=== PATIENT | female | born 1960 | race Caucasian/White ===

== ENCOUNTER 2017-02-24 10:40 | Inpatient (IN) ==
[2017-02-24] MEDS ORDERED: NS 1,000 ML IV ONE ×2 (11:13→12:24)
--- NOTE | 2017-02-24 11:52 | Diag Imaging Result Doc PS360 ---
EXAM: HEAD W/O CONTRAST HISTORY: ams TECHNIQUE: Dose reduction protocol COMPARISON: None. FINDINGS: No parenchymal hemorrhage. No epidural or subdural hematoma. No subarachnoid hemorrhage. Mild atrophy with chronic ischemic changes or an old infarct in the left basal ganglia. No mass identified on this noncontrasted exam. No hydrocephalus. Near complete opacification of the right maxillary sinus. IMPRESSION: 1.No hemorrhage 2.Atrophy with chronic ischemic changes in the left basal ganglia 3.Right maxillary sinus opacification Electronically signed by Geovany Hoff 02/24/2017 11:50 AM
[2017-02-24 11:54] LABS: ALLEN TEST NO; BE 2.2 mmoll (-3.0-3.0); BLOOD TYPE ARTERIAL; DRAW SITE R BRACHIAL; METHB 1.6 % (0.0-1.5); O2(CT) 14.8 mL/dL (15.0-23.0); PCO2(98.6) 32 mmHg (35-45); PO2(98.6) 83 mmHg (60-100); SAMPLE BLOOD; SAO2 96.9 % (95.0-100.0); THB 11.1 g/dL (11.5-17.4)
[2017-02-24 11:55] LABS: MODALITY ROOM AIR
[2017-02-24 12:09] LABS: BASO% 0.1 % (0.0-0.8); EOS# 0.01 X1000 (0.0-0.7); EOS% 0.1 % (0.0-10.0); HEMATOCRIT 32.5 % (37.0-47.0); HEMOGLOBIN 12.1 g/dL (12.0-16.0); IMM GRAN# 0.02 X1000 (0.0-0.04); IMM GRAN% 0.2 % (0.0-0.5); LYMPH# 0.69 X1000 (1.2-3.4); LYMPH% 7.6 % (20.5-51.1); MANUAL DIFF NEEDED? NO; MCHC 37.2 g/dL (33-37); MONO% 7.8 % (1.7-9.3); MPV 9.8 FL (7.4-10.4); NEUT% 84.2 % (42.2-75.2); PLT 453 X1000 (130-400); RBC 3.78 XMIL (4.2-5.4)
--- NOTE | 2017-02-24 12:17 | Diag Imaging Result Doc PS360 ---
EXAM: CHEST-PORTABLE HISTORY: AMS TECHNIQUE: Portable AP COMPARISON: None. FINDINGS: The lungs are well expanded. The heart is not enlarged. The vessels are not distended. No pneumonia. No pleural effusions identified. IMPRESSION: Negative chest. Electronically signed by Geovany Hoff 02/24/2017 12:15 PM
[2017-02-24 12:21] LABS: INR 0.97; PROTIME 10.2 Seconds (9.2-11.7)
[2017-02-24 12:28] LABS: PTT 18.5 Seconds (22.0-36.0)
[2017-02-24 12:37] LABS: ALBUMIN 4.7 g/dL (3.5-5.0); CALCIUM 10.2 mg/dL (8.8-10.2); POTASSIUM 3.2 mmol/L (3.5-5.1); TOTAL BILIRUBIN 0.66 mg/dL (0.20-1.00); TOTAL PROTEIN 8.4 g/dL (6.3-8.3)
[2017-02-24 13:02] LABS: CK INDEX 3.2 (0.0-2.5); CK-MB 5.91 ng/mL (0.0-5.0)
[2017-02-24] MEDS ORDERED: SOLU-MEDROL IV ONE (13:10)
--- NOTE | 2017-02-24 14:00 | PROVIDER DOCUMENTATION ---
This chart was entered by Pamela Pathak Scribe, acting as scribe for Iliana Crane MD. HPI-General Adult - General Chief Complaint: Psych Stated Complaint: "SCHIZOPHRENIC" Time Seen by Provider: 02/24/17 11:06 Source: patient, family Allergies/Adverse Reactions: Patient Allergies Allergy/AdvReac Type Severity Reaction Status Date / Time No Known Allergies Allergy Verified 02/24/17 12:27 - History of Present Illness -Gen Adult Nature of Presenting Problems: PT IS A 56YOF PRESENTING TO THE ED C/O FAILURE TO THRIVE AND PSYCHIATRIC PROBLEMS. PT HAS A HISTORY OF FAILURE TO THRIVE WHEN SHE IS HAVING ISSUES AND NON-COMPLIANT WITH MEDICATIONS FOR SCHIZOPHRENIA. PTS BROTHER BROUGHT HER IN TODAY DUE TO HER POOR CONDITION. PT STATES SHE "HURTS ALL OVER AND CANT GET UP TO DO ANYTHING." PT SMELLS LIKE URINE, VERY POOR HYGIENE CONDITION, THIN, DISHEVELED, AND EXTREMELY DRY MUCOUS MEMBRANES. UPON ARRIVAL TO ED PT IS MILDLY TACHYCARDIA WITH HYPOTENSION IN THE 80'S SYSTOLIC. PT DENIES ANY CP, SOB OR OTHER COMPLAINTS AT THIS TIME. Location of Pain/Injury: reports: generalized Pain Radiation: reports: no radiation Quality of Pain: reports: aching, dull Severity: reports: mild, moderate Onset/Duration: reports: gradual Timing: reports: still present, changing over time Context/Activities at Onset: reports: light activity Modifying Factors: improves with: nothing Associated Symptoms: reports: fatigue, joint pain, loss of appetite, malaise, weakness, trouble walking, other (BRUISING ALL OVER). denies: back/neck pain, chest pain, shortness of breath Similar Symptoms Previously?: Yes Recently seen or treated by another doctor?: No Review of Systems - Adult - REVIEW OF SYSTEMS - ADULT Constitutional: reports: see HPI, fatique, weight loss. denies: chills, fever Eyes: reports: no symptoms reported Ears, Nose, Mouth & Throat: reports: see HPI, other (DRY MEMBRANES). denies: sinus problem Cardiovascular: reports: no symptoms reported Respiratory: reports: no symptoms reported Gastrointestinal: reports: no symptoms reported Genitourinary: reports: no symptoms reported Musculoskeletal: reports: no symptoms reported Integumentary: reports: no symptoms reported Neurological: reports: no symptoms reported Psychiatric: reports: see HPI, anxiety, depression, emotional problems, panic attacks, other (SCHIZOPHRENIA). denies: suicidal thoughts Endocrine: reports: no symptoms reported Hematologic/Lymphatic: reports: see HPI, easy bruising, other (NO INJURY NOTED) Allergic/Immunologic: reports: no symptoms reported All Other Systems: Reviewed and Negative Past History - Adult - PAST MEDICAL HISTORY-ADULT Review of Records: reports: Old Records Reviewed, Nursing Assessment Review, Medications Reviewed, Social history reviewed & non-contributory. Major Childhood Illnesses: reports: denies history Cardiovascular: reports: denies history Respiratory: reports: denies history Gastrointestinal: reports: denies history Obstetrical/Gynecological: reports: denies history Genitourinary: reports: denies history Musculoskeletal: reports: denies history Neurological: reports: denies history Endocrine/Immune: reports: denies history Other Conditions: reports: denies history - IMMUNIZATION STATUS Childhood Immunizations: See Nurse Assessment Flu Vaccine: See Nurse Assessment - FAMILY HISTORY Family History: reviewed, not pertinent - SOCIAL HISTORY Smoking: cigarettes, greater than 1 pack/day Provider spent 3-5 mins advising pt. on dangers of tobacco.: Discussed manners to quit use, and f/u contacts for add'l counseling. Substance Use: none/never, denies Alcohol Use Frequency: never Living Situation: family Physical Exam-General - PHYSICAL EXAM-ADULT Initial Vital Signs Reviewed: Yes - CONSTITUTIONAL General Appearance: alert, moderate distress, thin (EXTREMELY THIN AND POOR HYGIENE), anxious, slow to respond. negative: appears well - EYES Eyes: PERRL/EOMI, pink conjunctivae - HEAD, EARS, NOSE, MOUTH & THROAT HENMT: normocephalic/atraumatic, TMs normal, other (VERY DRY MUCOUS MEMBRANES). negative: moist mucous membranes, normal ENT inspection, pharynx normal - NECK Neck: non-tender, full range of motion, supple, normal inspection - RESPIRATORY Respiratory: chest non-tender, lungs clear, normal breath sounds, no pleuratic chest pain, no respiratory distress, no accessory muscle use - CARDIOVASCULAR Cardiovascular: normal peripheral pulses, regular rate, rhythm, no edema, no gallop, no JVD, no murmur, other (HYPOTENSIVE 70-80'S SYSTOLIC) - GASTROINTESTINAL (ABDOMEN) Abdominal Exam: normal bowel sounds, non tender, soft, no organomegaly, no pulsatile mass - LYMPHATIC Lymphatic: no adenopathy - MUSCULOSKELETAL Back Exam: normal inspection, no CVA tenderness, no vertebral tenderness Extremity: normal range of motion, non-tender, no pedal edema, no calf tenderness, normal capillary refill, pelvis stable. negative: normal gait, normal inspection - SKIN Integumentary: normal turgor, warm/dry, other (MULTIPLE BRUISES ALL OVER BODY). negative: normal color - NEUROLOGIC Neurologic: sterilization specialist II-XII nml as tested, grossly normal, no motor/sensory deficits - PSYCHIATRIC Psych/Mental Status: normal thought content, normal thought process, oriented x 3, disheveled, depressed affect Progress - PLAN OF CARE/RESULTS Progress/Plan/Lab Results: Vital Signs - 8 hr 02/24/17 10:59 Temperature 98.6 F Pulse Rate 89 Respiratory Rate 14 Blood Pressure 78/46 O2 Sat by Pulse Oximetry 100 Laboratory Results - last 24 hr 02/24/17 11:50 Specimen Type ARTERIAL Sample Site R BRACHIAL pH 7.50 H pCO2 32 L pO2 83 HCO3 26.6 H Base Excess 2.2 Oxyhemoglobin 94.5 L ABG O2 Sat (Calculated) 14.8 L ABG O2 Saturation 96.9 ABG Carboxyhemoglobin 0.90 ABG Methemoglobin 1.6 H Arnold Test NO A-a O2 Difference 27.0 Total Hemoglobin 11.1 L Lactate 0.90 Blood Gas Modality ROOM AIR FiO2 % 21.0 Orders Category Date Time Status Finger Stick Blood Sugar (ED) DIRECTED Care 02/24/17 11:13 Active Saline Loc NOW Care 02/24/17 11:13 Active CHEST-PORTABLE [RAD] Stat Exams 02/24/17 11:13 Taken HEAD W/O CONTRAST [CT] Stat Exams 02/24/17 11:15 Completed ABG [RESP] Routine Lab 02/24/17 11:50 Completed ALCOHOL BLOOD Stat Lab 02/24/17 11:50 Received CBC WITH ELECTRONIC DIFF [HEME] Stat Lab 02/24/17 11:50 Results CK PROFILE [SP CHEM] Stat Lab 02/24/17 11:50 Received COMPREHENSIVE METABOLIC PANEL [CHEM] Stat Lab 02/24/17 11:50 Received LACTATE, PLASMA [CHEM] Stat Lab 02/24/17 11:50 Received PROTIME WITH INR [COAG] Stat Lab 02/24/17 11:50 Received PTT [COAG] Stat Lab 02/24/17 11:50 Received TROPONIN T Stat Lab 02/24/17 11:50 Received URINALYSIS W/POSS RFLX CULT-1 [URINALYSIS] Stat Lab 02/24/17 11:13 Uncollected URINE DRUG SCREEN Stat Lab 02/24/17 11:13 Uncollected 0.9% Sodium Chloride Inj [Ns] 1,000 ml Med 02/24/17 11:13 Active IV 999 mls/hr EKG [EKG] Stat Ther 02/24/17 11:13 Ordered Laboratory Tests 02/24/17 02/24/17 02/24/17 11:50 11:50 11:50 WBC RBC Hgb Hct MCV MCH MCHC RDW Std Deviation Plt Count MPV Immature Gran % (Auto) Neut % (Auto) Lymph % (Auto) Cross % (Auto) Eos % (Auto) Baso % (Auto) Immature Gran # (Auto) Neut # (Auto) Lymph # (Auto) Cross # (Auto) Eos # (Auto) Baso # (Auto) PT INR Specimen Type ARTERIAL Sample Site R BRACHIAL pH 7.50 H pCO2 32 L pO2 83 HCO3 26.6 H Base Excess 2.2 Oxyhemoglobin 94.5 L ABG O2 Sat (Calculated) 14.8 L ABG O2 Saturation 96.9 ABG Carboxyhemoglobin 0.90 ABG Methemoglobin 1.6 H Arnold Test NO A-a O2 Difference 27.0 Total Hemoglobin 11.1 L Lactate 0.90 Blood Gas Modality ROOM AIR FiO2 % 21.0 Estimated GFR/1.73 m2 8 Plasma Lactate 1.1 Plasma/Serum Ethyl Alc 02/24/17 02/24/17 02/24/17 11:50 11:50 11:50 WBC 9.03 RBC 3.78 L Hgb 12.1 Hct 32.5 L MCV 86.0 MCH 32.0 H MCHC 37.2 H RDW Std Deviation 12.5 Plt Count 453 H MPV 9.8 Immature Gran % (Auto) 0.2 Neut % (Auto) 84.2 H Lymph % (Auto) 7.6 L Cross % (Auto) 7.8 Eos % (Auto) 0.1 Baso % (Auto) 0.1 Immature Gran # (Auto) 0.02 Neut # (Auto) 7.60 H Lymph # (Auto) 0.69 L Cross # (Auto) 0.70 H Eos # (Auto) 0.01 Baso # (Auto) 0.01 PT 10.2 INR 0.97 Specimen Type Sample Site pH pCO2 pO2 HCO3 Base Excess Oxyhemoglobin ABG O2 Sat (Calculated) ABG O2 Saturation ABG Carboxyhemoglobin ABG Methemoglobin Arnold Test A-a O2 Difference Total Hemoglobin Lactate Blood Gas Modality FiO2 % Estimated GFR/1.73 m2 Plasma Lactate Plasma/Serum Ethyl Alc Result Diagrams: 02/24/17 11:50 02/24/17 11:50 - CONSULTS/PCP/HOSPITALIST Notification #1 *Consult/PCP/Hospitalist*: DR LUEVANO Time Discussed: 13:12 (CONSULT FOR ADMISSION) Consult Disposition: Admit #2 Consult: DR ROSSI Time Discussed: 13:14 Reason/Comments: ACCEPTED PT TO SERVICE POSSIBLE ICU ADMISSION Consult Disposition: Admit Departure - Departure Date of Disposition Decision: 02/24/17 Time of Disposition Decision: 13:24 DIAGNOSIS: Altered mental status, unspecified, Hypotension, Hyponatremia, Renal insufficiency, Dehydration Disposition: ADMITTED INPATIENT 09 Certified Medical Emergency: Emergent Condition: Stable Referrals and Follow-Ups: None,PCP [Primary Care Provider] - - Critical Care Note This patient required my direct & personal management of CC.: Yes Total Time (mins): 60 (DR CRANE) Critical Care Statement: This patient required my direct personal management to treat or rule out processes, the absence of which, could potentiallly result in sudden, clinically significant life or limb threatening deterioration. This chart was documented by the indicated scribe, (Pamela Pathak Scribe) and accurately reflects the services I performed and decisions made by me, Iliana Crane MD, as attested by the provider's signature.
[2017-02-24 14:56] LABS: URINE MICRO REVIEW NEEDED? NO; URINE SOURCE CATH
[2017-02-24 15:03] LABS: BILIRUBIN URINE NEGATIVE (NEGATIVE); BLOOD URINE MODERATE (NEGATIVE); COLOR YELLOW; GLUCOSE URINE NEGATIVE (NEGATIVE); LEUKOCYTES URINE LARGE (NEGATIVE); NITRITE URINE NEGATIVE (NEGATIVE); PH URINE 5.5; PROTEIN URINE 100 mg/dL (NEGATIVE); SP GRAVITY URINE 1.015; TURBIDITY URINE HAZY (CLEAR); UROBILINOGEN URINE NORMAL (NORMAL)
[2017-02-24 15:04] LABS: UR EPITHELIAL CELLS <10 /HPF (<10); URINE BACTERIA 1+ /HPF; URINE CULTURE NEEDED? YES; URINE RBC <10 /HPF (<10); URINE WBC TNTC /HPF (<10)
--- NOTE | 2017-02-24 15:08 | HISTORY AND PHYSICAL ---
HISTORY OF PRESENT ILLNESS: This is a 56-year-old who has a past medical history apparently of schizophrenia, depression, hypothyroidism, hypertension, gastroesophageal reflux disease, and anemia. She has a child. She apparently does not have a private care physician. She does go to the [facility] and I believe she is seen by a counselor or psychiatrist there, but she has not been there in a while. Dad and brother here state that she has really gone down the last 2 weeks, cannot get up, cannot walk. Her stomach is burning. Dennison to urinate. She claims she has not had a bowel movement in several days. She does answer questions but her affect is slow, appears to have a hard time concentrating. She is moving all extremities. Family did not notice any new focal neurologic deficits. SOCIAL HISTORY: She smoked a pack per day since age 15. She had been in 3-5 alcohol rehab treatment programs in the past. She drinks beer all day. She has no ride to get her alcohol at the present time so they suspect she has not had any. She has a 14-year-old daughter who lives with her grandfather. FAMILY HISTORY: Noncontributory. REVIEW OF SYSTEMS: General Appearance: They feel like she has lost weight. They have not noticed any fever or chills. HEENT: No change. I do not know that they notice any change in her color. She claims she has not had a bowel movement several days. No trouble with voiding although she sometimes dennison when she urinates. Respiratory: No increased work of breathing. Cardiovascular: No chest pain. PHYSICAL EXAMINATION: VITAL SIGNS: Today in the emergency room, temperature 98.6 degrees, pulse 77, respiration is 18, blood pressure 99/47. Weight 115 pounds. HEENT: Pupils are equal and round. LUNGS: Clear in all lung wall. CARDIOVASCULAR: Regular rhythm and rate without murmur or S3. ABDOMEN: Soft, nontender. SKIN: Warm and dry. DIAGNOSTIC DATA: White count 9030, hematocrit 32, platelet count 453,000. Sodium 121, potassium 3.2, chloride 73, bicarb 23, BUN 101, creatinine 5.7, blood sugar 116. AST 26, ALT 21, alkaline phos 101, troponin 0.089, albumin 4.7. ProTime 10.2. PTT is 18.5. Urine or plasma alcohol zero. Blood gases; pH is 7.50, pCO2 32, PO2 is 83, O2 saturation is 96%. Chest x-ray: Negative chest. Head CT: No hemorrhages. Atrophy with chronic ischemic changes in the left basal ganglia. Right maxillary sinus with some opacification. LIST OF MEDICATIONS: I am not sure we know what all medicines she was on. Apparently they do not have. The family did state there was a whole pile of medicines, there are quite a few medicines at her home. ASSESSMENT AND PLAN: 1. History of alcohol. I am not sure how long she has been without alcohol, so I suspect at minimum she is going through alcohol withdrawal and maybe has even gone through delirium tremens, and maybe going through it at the present time. 2. Hyponatremia. Appears to be volume contracted, so I suspect this is hypovolemic hyponatremia. Note her osmolality is 277, so hyperosmolar as well. So we will give her some normal saline, we will run it at 100 mL an hour and follow her sodium. Also follow her magnesium. Will check her thyroid T4 and TSH. We will check a cortisone level in the morning. I will go ahead and give her stress doses for potential adrenal insufficiency even though I do not know that this has been documented. 3. Hypokalemia. We will supplement her potassium. 4. Questionable constipation. We will give her a regular diet and we will start her on some Colace and see how we do. Probably need to check an ammonia level. 5. Acute kidney injury. Serum creatinine is 5.7. Hopefully the majority of this is prerenal, so normal saline, will follow. Will ask Dr. Terry to follow along. 6. History of schizophrenia and depression. 7. Has a history of hypothyroidism, question on whether she is taking any of her medicines like she is supposed to, so once again we will check T4 and TSH to see where we are, check a B12 and folate. Note that her ABGs look like they are just a respiratory alkalosis probably just from getting the blood gases. cc: Arnold Aldrich MD
[2017-02-24 15:24] LABS: UR AMPHETAMINES QUAL NONE DETECTED (NONE DETECT); UR BARBITUATES QUAL NONE DETECTED (NONE DETECT); UR BENZODIAZEPIN QUAL NONE DETECTED (NONE DETECT); UR CANNABINOIDS QUAL NONE DETECTED (NONE DETECT); UR COCAINE QUAL NONE DETECTED (NONE DETECT); UR METHADONE QUAL NONE DETECTED (NONE DETECT); UR OPIATES QUAL NONE DETECTED (NONE DETECT); UR OXYCODONE QUAL NONE DETECTED (NONE DETECT); UR PCP QUAL NONE DETECTED (NONE DETECT)
[2017-02-24 15:25] LABS: UR CREAT RANDOM 234.4 mg/dL (11-20)
[2017-02-24] MEDS: SOLU-CORTEF IV SCH (18:03)
[2017-02-24] MEDS: NS + KCL 40 MEQ 1,000 ML IV SCH (18:04)
[2017-02-24 20:39] LABS: UR CREAT RANDOM 109.6 mg/dL (11-20); UR PROT RANDOM 144.2 mg/dL
--- NOTE | 2017-02-24 21:33 | CONSULTATION ---
DATE OF CONSULTATION: 02/24/2017 REASON FOR ADMISSION: Altered mental status. Weakness. REASON FOR CONSULT: Acute kidney injury associated with hyponatremia. CONSULTING PHYSICIAN: Dr. Aldrich. HPI: Ms. Smith is a 56-year-old white female who has not been seen by our service in the past. She was admitted to [facility] after her family stated that she has not moved off of her couch for more than 2 weeks. They said that she was lying in urine. She has scalding present to abdomen and buttocks. She has a slow affect upon questioning. She has a hard time concentrating. She does deny chest pain. She states that she has just not felt well in the last several weeks and has just gone downhill was unable to get up and seek help. Subsequently her father and her brother have brought her to [facility]. It was found upon admission in the emergency room that her sodium was 121, she had a white count of 9000, potassium of 3.2, BUN of 101 with a creatinine of 5.7. Her drug screen was negative. It is noted that patient does admit to drinking heavily though she has quit in the last 2-3 weeks. She states that she has not been eating much, decreased appetite. Negative for nausea and vomiting. Negative for diarrhea. Negative for fever and chills. No chest pain or increased work of breathing. She does answer questions though she is slow to respond. SOCIAL HISTORY: The patient states that she is single. She lives alone. She has a daughter who lives with her grandfather. She has been in alcohol rehab treatments in the past. She states that she used to drink greater than a 6 pack per day but is down to maybe 1 or 2 a day prior to the last 2 weeks onset. She states that she has been smoking since the age of 15, she has previously smoked a pack per day. She states that she has not been smoking but maybe 1 a day up until a week ago when she felt too weak to light her cigarettes. She also states that she has never done illicit drug use or street drugs. PAST MEDICAL HISTORY: Noted in the chart and patient does admit that she has a history of schizophrenia, depression, hypothyroidism, hypertension, gastroesophageal reflux , anemia. FAMILY HISTORY: Noncontributory. CURRENT ALLERGIES: Listed as no known drug allergies. MEDICATIONS: Family has gone home to attempt to gather her personal medications together. We have no history. REVIEW OF SYSTEMS: Times 10 with pertinent positives listed above in the HPI. VITAL SIGNS: Her most recent vital signs, temperature 98.1 degrees, blood pressure 100/60, heart rate 80, respirations 16, she is on room air. Last recorded saturation is 89-91 %. LABS: Sodium 121, potassium 3.2, chloride 73, CO2 23, BUN 101, creatinine 5.7, glucose 116. Her anion gap is 25, her calcium is 10.2, her albumin is 4.7. White count 9.03, hemoglobin 12.1, hematocrit 32.5 with a platelet count of 453,000. Her pro time is 10.2 with an INR of 0.7 with a PTT of 18.5. Patient had urine electrolytes collected indicating a FENa score of 0.3%. She is prerenal. Urinalysis is positive for proteinuria and hematuria. Patient had an anemia panel that is still currently pending. She has received 2 L of normal saline bolus in the emergency room. She is currently admitted on the floor. She is receiving normal saline with 40 of KCl infusing at 100 mL an hour to her right forearm. Patient was given a dose of Solu-Medrol. She denies any problems at this time. She has had a head CT which is negative for any acute disease with right maxillary sinusitis and atrophy noted to the left basal ganglia. Chest x-ray was negative. PHYSICAL EXAMINATION: General: This is a 56-year-old white female. She appears chronically ill. She is in no acute distress. Skin: Warm and dry. HEENT: Normocephalic, atraumatic. Conjunctiva is pale. She has JONATHAN. Mucous membranes are dry. Neck: Supple. Trachea midline. No JVD. Cardiovascular: She has regular rate and rhythm. She is without murmur or gallop. Lungs: Clear to auscultation anteriorly. Equal excursion. She remains on room air. Abdomen: Soft, round, nontender. Positive bowel sounds. No guarding noted. Genitourinary: De Oliveira catheter is in place. She is starting to flower picker urine to her urometer at this time. Clear yellow urine is noted. Extremities: She has no edema, no clubbing or cyanosis. Integumentary: The patient has different stages of ecchymosis and bruising over her lower and upper extremities and some to her backside. ASSESSMENT AND PLAN: 1. Acute kidney injury. Patient's creatinine baseline is unknown. We have no previous creatinine noted in the hospital system. She is currently at 5.7 with a BUN of 101. She has received 2 L of normal saline bolus. She continues to receive normal saline with 40 mEq of KCl at 100 mL an hour. Her urine electrolytes indicate that she has a low FENa score. Definitely prerenal. Agree with continued IV fluids. We will check these labs in the a.m. 2. Electrolytes. Patient is hyponatremic. She continues to have normal saline with 40 mEq of KCl infusing with hypokalemia. Again labs to be repeated in the a.m. 3. Acidosis. Patient has an elevated anion gap acidosis. She had a negative plasma ethylene glycol level, negative drug screen. 4. Anemia. This is currently within target range. 5. Encephalopathy. This is currently improved. With her delirium since her hospitalization and IV fluid boluses she is to have a T4 and TSH checked. 6. History of schizophrenia and depression. We do not know patient's home medications. Hopefully we will get this in the a.m. 7. Hypothyroidism. Patient is unsure if she has been taking her medications. Again we will have these labs checked. These are currently pending. These are being followed by the primary care team. I would like to thank you for allowing us to follow with this patient. Dictated by PASCUAL Cisneros for Regino Terry MD cc: PASCUAL Cisneros MD [facility]
[2017-02-24] MEDS: PERICOLACE PO SCH (21:47)
[2017-02-24] MEDS: HEPARIN SUBQ SCH (21:48)
[2017-02-24] MEDS: PRILOSEC PO SCH (21:48)
[2017-02-25] MEDS: SOLU-CORTEF IV SCH ×3 (00:14→16:16)
[2017-02-25] MEDS: NS + KCL 40 MEQ 1,000 ML IV SCH ×2 (03:33→15:48)
[2017-02-25 05:19] LABS: INR 1.02; PROTIME 10.7 Seconds (9.2-11.7)
[2017-02-25 05:20] LABS: HEMOGLOBIN A1C 5.3 % (4.8-6.0); PTT 28.4 Seconds (22.0-36.0)
[2017-02-25 06:04] LABS: ALBUMIN 3.5 g/dL (3.5-5.0); CALCIUM 8.9 mg/dL (8.8-10.2); MAGNESIUM 2.1 mg/dL (1.5-2.7); POTASSIUM 3.6 mmol/L (3.5-5.1); TOTAL BILIRUBIN 0.41 mg/dL (0.20-1.00)
[2017-02-25 06:52] LABS: FREE T4 0.35 ng/dL (0.93-1.70)
[2017-02-25 06:57] LABS: HEMATOCRIT 23.9 % (37.0-47.0); HEMOGLOBIN 8.5 g/dL (12.0-16.0); LYMPH# 0.32 X1000 (1.2-3.4); LYMPH% 4.8 % (20.5-51.1); MANUAL DIFF NEEDED? YES; MCH 31.5 PG (27-31); MCHC 35.6 g/dL (33-37); MCV 88.5 FL (81-99); MONO# 0.38 X1000 (0.11-0.59); MONO% 5.7 % (1.7-9.3); MPV 9.6 FL (7.4-10.4); NEUT% 89.5 % (42.2-75.2); PLT 308 X1000 (130-400)
[2017-02-25 07:21] LABS: LYMPHS 16 % (21-51); MONO 6 % (1-9)
--- NOTE | 2017-02-25 09:02 | PROGRESS NOTE ---
DATE: 02/25/2017 SUBJECTIVE: Ms. Smith is awake. She feels bad all over. Hurting all over. No appetite and does not want any food. She is aware that she is in the hospital. She has remained afebrile. PHYSICAL EXAMINATION: Vital Signs: Temperature 98.7 degrees, pulse 83, respirations 18, blood pressure 117/76. HEENT: Pupils are equal and round. Lungs: Are clear in all lung wall. Cardiovascular Examination: Regular rhythm and rate without murmur or S3. Abdomen: Soft. Skin: Warm and dry. Is and Os: Urine output 1700 mL. LAB: White count 6680, hematocrit 23, platelet count 308,000. Chemistry: Sodium 126, potassium 3.6, chloride 88, bicarb 18, BUN 83, creatinine 4.1 which is down. It was 5.7 when she came in. Sodium has come up to 126. Magnesium 2.1. ASSESSMENT AND PLAN: 1. Acute kidney injury. Patient's creatinine baseline unknown. Appears to be predominantly prerenal. Continue her normal saline with some potassium. She has a low FENa score so appears to be prerenal, consistent with clinical exam. 2. Electrolytes. Continue to watch potassium and magnesium. 3. Acidosis and elevated anion gap. 4. Anemia, stable. Watch hematocrit and hemoglobin. 5. Encephalopathy. I think this is improving. Suspect multifactorial. 6. History of schizophrenia. 7. History of hypothyroidism. Lab, T4 is 0.35 and TSH was 30.38 so I do not think she has been on her thyroid. We will put her back on thyroid Synthroid medicine. cc: Arnold Aldrich MD
[2017-02-25] MEDS: PRILOSEC PO SCH ×2 (09:03→20:10)
[2017-02-25] MEDS: PERICOLACE PO SCH ×2 (09:03→20:08)
[2017-02-25] MEDS: HEPARIN SUBQ SCH ×2 (09:03→20:10)
[2017-02-25] MEDS: TYLENOL PO PRN ×2 (09:18→14:32)
[2017-02-25] MEDS: SYNTHROID IV SCH (09:18)
--- NOTE | 2017-02-25 12:59 | Diag Imaging Result Doc PS360 ---
EXAM: ABDOMEN FLAT/UPRIGHT - 02/25/2017 HISTORY: abd pain TECHNIQUE: Portable supine and upright abdomen 1120 COMPARISON: None. FINDINGS: The bowel gas pattern appears nonspecific and nonobstructive. There is no discrete free air identified. There are some retained fecal debris in the colon. IMPRESSION: Nonspecific bowel gas pattern. Electronically signed by Carlos Randall 02/25/2017 12:57 PM
[2017-02-25] MEDS: ATIVAN IV PRN ×3 (14:32→20:09)
[2017-02-25] MEDS: BUSPAR PO SCH (17:31)
[2017-02-25] MEDS: KLONOPIN PO SCH (20:09)
[2017-02-25] MEDS: SEROQUEL XR PO SCH (20:09)
[2017-02-25] MEDS: WELLBUTRIN SR PO SCH (20:10)
[2017-02-26] MEDS: ATIVAN IV PRN (02:13)
[2017-02-26] MEDS: SOLU-CORTEF IV SCH ×3 (02:13→17:43)
[2017-02-26] MEDS: NS + KCL 40 MEQ 1,000 ML IV SCH ×3 (02:18→20:17)
[2017-02-26 04:46] LABS: ALBUMIN 3.2 g/dL (3.5-5.0); CALCIUM 9.2 mg/dL (8.8-10.2); TOTAL BILIRUBIN 0.34 mg/dL (0.20-1.00)
--- NOTE | 2017-02-26 06:46 | EKG Report ---
Test Performed on : 02/25/2017 06:03:59 AM Test Reason : chest pain Blood Pressure : / mmHG Vent. Rate : 081 BPM Atrial Rate : 081 BPM P-R Int : 158 ms QRS Dur : 090 ms QT Int : 392 ms P-R-T Axes : 059 035 054 degrees QTc Int : 455 ms Normal sinus rhythm. Normal ECG When compared with ECG of 24-FEB-2017 15:23, (Unconfirmed) TN interval has decreased Confirmed by Lucila Looney MD ([id number]) on 02/26/2017 10:17:36 AM
--- NOTE | 2017-02-26 07:40 | Diag Imaging Result Doc PS360 ---
EXAM: US RENAL 2 (RETROPER) COMPLETE HISTORY: giovanni TECHNIQUE: Renal ultrasound, transabdominal COMMENT: There is some of obscuration of detail due to the patient's body habitus. Bladder is not distended and there is a De Oliveira catheter in the bladder. The right kidney is 9.3 x 4.5 x 4.2 cm the left is 9.1 x 4 x 4.4 cm. There is no evidence of hydronephrosis or mass and the kidneys are normal in echogenicity. IMPRESSION: No evidence of obstructive uropathy or other acute abnormality. Electronically signed by Dominick Og 02/26/2017 7:37 AM
[2017-02-26] MEDS ORDERED: STERILE WATER INJ. ONE (08:53)
[2017-02-26] MEDS: SYNTHROID IV SCH (08:56)
[2017-02-26] MEDS: WELLBUTRIN SR PO SCH ×2 (09:02→20:19)
[2017-02-26] MEDS: BUSPAR PO SCH ×3 (09:03→17:43)
[2017-02-26] MEDS: KLONOPIN PO SCH ×2 (09:03→20:19)
[2017-02-26] MEDS: PERICOLACE PO SCH ×2 (09:03→20:18)
[2017-02-26] MEDS: LEXAPRO PO SCH (09:03)
[2017-02-26] MEDS: PRILOSEC PO SCH ×2 (09:03→20:19)
[2017-02-26] MEDS: HEPARIN SUBQ SCH ×2 (09:03→20:19)
[2017-02-26] MEDS: KLOR-CON PO SCH ×2 (09:07→20:18)
--- NOTE | 2017-02-26 10:40 | PROGRESS NOTE ---
DATE: 02/26/2017 TIME SEEN: 0750 SUBJECTIVE: Ms. Smith is resting quietly in bed. Her eyes are closed. She states that she hurts all over. She does deny any specific chest pain or increased work of breathing. OBJECTIVE: Vital Signs: Her most recent vital signs, temperature 97.6 degrees , blood pressure 109/63, heart rate 79, respirations are 14. She is on 2 L nasal cannula. Last recorded saturation 98%. She has had 1700 in. She has had 700 out per De Oliveira catheter. Laboratory Data: Sodium 128, potassium 3, chloride is 93, CO2 20, BUN 60, creatinine 2.4, glucose 96, anion gap 15, calcium 9.2, albumin 3.2. Previous hemoglobin 8.5 on the 9. Her renal ultrasound indicates her right kidney measuring 9.3, left measuring 9.1. No other abnormality. No hydronephrosis or mass noted. Physical Examination: General: This is a 56-year-old, white female. She appears chronically ill. She is in no acute distress. Her skin is warm and dry. HEENT: Normocephalic, atraumatic. Conjunctivae are pale. She has JONATHAN. Mucous membranes are dry. Neck: Supple. Trachea midline. No JVD. Cardiovascular: Regular rate and rhythm. She is without murmur or gallop. Lungs: Clear to auscultation anteriorly. Equal excursion on O2. Abdomen: Soft, nontender. Positive bowel sounds. Genitourinary: Not inspected. Patient has a De Oliveira catheter. Adequate urine out. Extremities: No edema. No clubbing or cyanosis. Integumentary: Patient has different stages of ecchymoses in healing to the upper and lower extremities from bruises. The backside is not inspected. Neurological: She is alert and oriented x2. ASSESSMENT AND PLAN: 1. Acute kidney injury. Patient's baseline creatinine is unknown. Her labs indicated that she was prerenal. She continues with intravenous fluids of normal saline with 40 mEq of KCl infusing at 100 mL an hour. Her sodium has improved to 128. Adequate urine out. No indications for intervention. 2. Electrolytes. She has hypokalemia and hyponatremia. She has normal saline infusing with potasium supplment. We will add oral supplement of 40 mEq of potassium. We will check labs at 5 p.m. this evening. 3. Acidosis. This continues to improve. Anion gap is closing. 4. Anemia. This remains low but stable. 5. History of schizophrenia, known. She is back on several of her home medications. 6. Hypothyroidism. It is been noted that her TSH was 30.38. She has been started back on her Synthroid. I would to thank you for allowing us to follow with this patient. Dictated by PASCUAL Cisneros for Regino Terry MD cc: PASCUAL Cisneros MD [facility]
--- NOTE | 2017-02-26 15:07 | PROGRESS NOTE ---
DATE: 02/26/2017 SUBJECTIVE: Ms. Smith is awake and she is eating lunch, is feeling better. She is pretty weak and very tired. OBJECTIVE: Vital signs: Temperature 97.8 degrees, pulse 79, respirations 14, blood pressure 103/61. Eyes: The pupils are equal, round. Lungs: Are clear in all lung wall. Cardiovascular: Regular rhythm and rate without murmur or S3. Abdomen: Soft. Skin: Warm and dry. : Urine output was 2200 mL. LABORATORY: White count 6680, hematocrit 23, platelet count 308,000. Chemistry: Sodium 138, potassium 28, potassium 3, chloride 93, bicarb 20, BUN 16, creatinine 2.4. Albumin was 3.2. ASSESSMENT AND PLAN: 1. Acute kidney injury. Baseline creatinine unknown. She seems to be improving. Continue IV fluids with 40 mEq of potassium. She had some hypokalemia. Her sodium is improving. 2. Hyponatremia. Sodium is coming up. 3. Hypokalemia. Continue normal saline with potassium supplement. Improving. 4. Acidosis, which is improving. 5. Anemia. Stable, but low. 6. History of schizophrenia. 7. History of primary hypothyroidism. Continue her Synthroid. Note that she must have not taken the Synthroid for a while. T4 was low. TSH elevated. 8. Review of her lab from today, we will supplement a little bit of potassium. We will follow on her magnesium as well. Creatinine down to 2.4. It was 4.1 when she came in. Sodium, mild improvement. Continue present measures. Begin physical therapy, see if we can get her stronger and get her out of bed. cc: Arnold Aldrich MD
[2017-02-26] MEDS: POTASSIUM CHLORIDE 20 MEQ/SWI 20 MEQ/100 ML IVPB IV SCH ×2 (15:22→20:18)
[2017-02-26] MEDS: SEROQUEL XR PO SCH (20:18)
[2017-02-27] MEDS: SOLU-CORTEF IV SCH ×3 (01:21→18:02)
[2017-02-27] MEDS: NS + KCL 40 MEQ 1,000 ML IV SCH (05:01)
[2017-02-27] MEDS: SYNTHROID IV SCH (06:18)
[2017-02-27] MEDS ORDERED: HALDOL IV ONE (07:41)
[2017-02-27 07:42] LABS: ALBUMIN 3.7 g/dL (3.5-5.0); CALCIUM 9.8 mg/dL (8.8-10.2)
[2017-02-27 07:46] LABS: POTASSIUM 5.4 mmol/L (3.5-5.1)
[2017-02-27] MEDS: HEPARIN SUBQ SCH ×2 (09:25→21:08)
[2017-02-27] MEDS: PERICOLACE PO SCH ×2 (09:26→21:09)
[2017-02-27] MEDS: BUSPAR PO SCH ×3 (09:27→18:02)
[2017-02-27] MEDS: LEXAPRO PO SCH (09:27)
[2017-02-27] MEDS: KLONOPIN PO SCH ×2 (09:28→21:19)
[2017-02-27] MEDS: PRILOSEC PO SCH ×2 (09:28→21:10)
[2017-02-27] MEDS: WELLBUTRIN SR PO SCH ×2 (09:43→21:14)
[2017-02-27] MEDS: NS 1,000 ML IV SCH ×2 (10:09→21:16)
--- NOTE | 2017-02-27 13:55 | PROGRESS NOTE ---
DATE: 02/27/2017 TIME SEEN: 819 SUBJECTIVE: Ms. Smith is resting quietly in bed. Head of the bed is elevated. She had been given Haldol during the night. She denies any pain. No increased work of breathing. OBJECTIVE: Vital Signs: Her most recent vital signs, temperature is 98 degrees , blood pressure 129/76, heart rate 92, respirations 16. She is on room air. Last recorded saturation 100%. We have had 1200. We had 1100 out per her De Oliveira catheter which was pulled out during the night. Laboratory Data: Sodium 137, potassium 5.4, chloride is 104, CO2 19, BUN 35, creatinine 1.7, glucose 113, anion gap of 14, calcium is 9.8. Further lab is pending. Hemoglobin 8.5 on the . Physical Examination: General: This is a 56-year-old, white female. She is currently resting in bed. She is in no acute distress at this time. Skin is warm and dry. HEENT: Normocephalic, atraumatic. Conjunctivae pale. She has JONATHAN. Mucous membranes are dry. Neck : Supple. Trachea midline. No JVD. Cardiovascular: Regular rate and rhythm. She is without murmur or gallop. Lungs: Clear to auscultation anteriorly. Equal excursion. She is on room air. Abdomen: Round, soft, nontender. Positive bowel sounds. Genitourinary: Her De Oliveira catheter remains out. Not inspected. Extremities: Have no edema. No clubbing or cyanosis. Integumentary: She continues with different stages of ecchymosis and bruising to the lower and upper extremities. Her back site has not been inspected. Neurological: She is alert to person. ASSESSMENT AND PLAN: 1. Acute kidney injury. This continues to improve. Creatinine is now down to 1.7. Adequate urine out. 2. Electrolytes. The patient now has mild hyperkalemia secondary to p.o. and IV supplement given yesterday. Hyponatremia. This continues to improve. 3. Acidosis. Anion gap continues to close. This remains stable. 4. Anemia. This remains stable. 5. Hypothyroidism. Patient continues on her Synthroid as directed. 6. Altered mental status with confusion. This does continue. Patient was actually given Haldol last night to assist with anxiety and agitation. This is followed by the primary care team. I would like to thank you for allowing us to follow with this patient. Dictated by PASCUAL Cisneros for Regino Terry MD cc: PASCUAL Cisneros MD [facility]
[2017-02-27] MEDS ORDERED: SODIUM PHOSPHATE 21 MMOL in NS 250 ML IV ONE (14:00)
--- NOTE | 2017-02-27 14:39 | PROGRESS NOTE ---
DATE: 02/27/2017 SUBJECTIVE: Ms. Smith is awake and alert. She is oriented x2. She is not oriented in time. She is following commands. Family members at the bedside; daughter, dad and mom. I had a really large conversation with her mom and dad, and they said that this patient has been drinking for a very long time. The last time that they saw her drinking and drunk was 2 months ago, but they think that this patient was not eating for the past days, just drinking. She does not have today any signs or symptoms of alcohol withdrawal, but we will keep an eye on that. Apparently, also they have been trying multiple times different detox centers. This patient has been a little bit agitated. She has been pulling out lines and De Oliveira catheter. I used today a 1-time dose of Haldol and it seems to work. We did a urine culture that showed an infection with E. coli that is basically spencer-sensitive, only resistant to levofloxacin. So, I will start this patient with ceftriaxone. OBJECTIVE: Vital Signs: Temperature 98 degrees, pulse 96, respiratory rate 16, blood pressure 146/92, oxygen saturation 100% on room air. HEENT: Head normocephalic. No trauma. PERRLA. Neck: Supple. No JVD. No masses. Central trachea. Chest: Clear to auscultation. No wheezing. No rales. Abdomen: Soft, nontender, nondistended. No hepatosplenomegaly. Extremities: No edema. No clubbing. No cyanosis. Neurological examination: The patient is alert. She is oriented x2. Her answers are slow; she is following commands. LABORATORY: Sodium 137, potassium 5.4, chloride 104, bicarbonate 19, BUN 35, creatinine 1.7, glucose 113, calcium 9.8, phosphorus 1.1. ASSESSMENT AND PLAN: 1. Acute kidney injury: Baseline creatinine unknown. It is improving. The urine output is good. The BUN and creatinine are improving on a daily basis. I will continue with normal saline. I will stop the potassium. 2. Hyperkalemia. I will stop the potassium. I will continue to monitor. 3. Hyponatremia, resolved. 4. Hypophosphatemia. I will at add a one-time dose of sodium phosphate. Will monitor. 5. Acidosis, which is improving. 6. Anemia, stable but low. 7. History of schizophrenia, aware. Continue with home medications. 8. History of hypothyroidism. Continue with Synthroid. 9. Agitation. Probably we will use Haldol p.r.n. 10. Urinary tract infection. I will start this patient on ceftriaxone. cc: Satnam Suero MD
[2017-02-27] MEDS: ROCEPHIN 1 GM/NS 1 GM/50 ML IVPB IV SCH (15:17)
[2017-02-27] MEDS: ATIVAN IV PRN (17:26)
[2017-02-27] MEDS: SEROQUEL XR PO SCH (21:09)
[2017-02-28] MEDS: ATIVAN IV PRN ×2 (04:58→22:18)
[2017-02-28] MEDS: SYNTHROID IV SCH (06:29)
[2017-02-28] MEDS: NS 1,000 ML IV SCH ×2 (06:29→12:06)
[2017-02-28 07:32] LABS: HEMATOCRIT 21.3 % (37.0-47.0); HEMOGLOBIN 7.1 g/dL (12.0-16.0); IMM GRAN# 0.04 X1000 (0.0-0.04); IMM GRAN% 0.9 % (0.0-0.5); LYMPH# 0.39 X1000 (1.2-3.4); LYMPH% 8.7 % (20.5-51.1); MANUAL DIFF NEEDED? YES; MCH 31.1 PG (27-31); MCHC 33.3 g/dL (33-37); MCV 93.4 FL (81-99); MONO# 0.19 X1000 (0.11-0.59); MONO% 4.2 % (1.7-9.3); MPV 9.7 FL (7.4-10.4); NEUT% 86.2 % (42.2-75.2); PLT 275 X1000 (130-400); RBC 2.28 XMIL (4.2-5.4)
[2017-02-28 07:37] LABS: ALBUMIN 3.3 g/dL (3.5-5.0); CALCIUM 8.6 mg/dL (8.8-10.2); POTASSIUM 4.7 mmol/L (3.5-5.1)
[2017-02-28 07:50] LABS: BANDS 2 % (0-1); LYMPHS 8 % (21-51); MONO 4 % (1-9)
[2017-02-28 07:51] LABS: HYPOCHROM OCCASIONAL
[2017-02-28] MEDS: BUSPAR PO SCH ×3 (09:19→22:08)
[2017-02-28] MEDS: KLONOPIN PO SCH ×2 (09:19→22:09)
[2017-02-28] MEDS: PRILOSEC PO SCH ×2 (09:20→22:08)
[2017-02-28] MEDS: WELLBUTRIN SR PO SCH ×2 (09:22→22:12)
[2017-02-28] MEDS: LEXAPRO PO SCH (09:22)
[2017-02-28] MEDS: PERICOLACE PO SCH ×2 (09:22→22:09)
[2017-02-28] MEDS: SOLU-CORTEF IV SCH ×3 (09:25→18:05)
[2017-02-28] MEDS: HEPARIN SUBQ SCH ×2 (09:25→22:07)
--- NOTE | 2017-02-28 15:15 | PROGRESS NOTE ---
DATE: 02/28/2017 SUBJECTIVE: Ms. Smith is resting quietly in bed. She continues to have wrist restraints intact. She is tearful. Her mother and father are at her bedside. She does deny chest pain or increased work of breathing. OBJECTIVE: Her most recent vital signs, temperature 97.8 degrees, blood pressure 154/84, heart rate 92, respirations 16. She is on room air. Last recorded saturation 99%. She has had 1200 in. She has had 625 out per De Oliveira catheter. LABS: Sodium 135, potassium 4.7, chloride 105, CO2 19. BUN 20, creatinine 1.3, glucose 104. Anion gap is 11. Calcium 8.6, phosphorus 2.4, albumin 3.3. White count 4.48, hemoglobin 7.1, hematocrit 21.3 with a platelet count of 275,000. PHYSICAL EXAMINATION: General: This is a 56-year-old white female. She is resting quietly in bed. She is in moderate distress secondary to being restrained though she remains slightly confused. Skin: Warm and dry. HEENT: Normocephalic, atraumatic. Conjunctivae pale. She has JONATHAN. Mucous membranes dry. Neck: Supple. Trachea midline. No JVD. Cardiovascular: Regular rate and rhythm. She is without murmur or gallop. Lungs: Clear to auscultation anteriorly. Equal excursion on room air. Abdomen: Round, soft, nontender. Positive bowel sounds. Genitourinary: De Oliveira catheter remains in place. Not inspected. Adequate urine out. Integumentary: No rashes or lesions though she does have different stages of healing of ecchymoses to her upper and lower extremities. She does have a decubitus noted to her backside. This was not inspected. Extremities: She has no edema. No clubbing, or cyanosis. Neurological: Patient is alert to person, though she is confused and slightly agitated. She remains restrained. ASSESSMENT AND PLAN: 1. Acute kidney injury. This has resolved. Patient is down to a creatinine of 1.3 with unknown baseline. 2. Electrolytes. Patient has had hyperkalemia. This is resolved. 3. Hyponatremia. This is resolved. 4. Acidosis. This does remain stable. 5. Anemia. This remains low but stable. 6. Altered mental status. This continues followed by the primary care team. I would to thank you for allowing us to follow with this patient. Dictated by PASCUAL Cisneros for Regino Terry MD cc: PASCUAL Cisneros MD
[2017-02-28] MEDS: ROCEPHIN 1 GM/NS 1 GM/50 ML IVPB IV SCH (15:18)
--- NOTE | 2017-02-28 15:39 | PROGRESS NOTE ---
DATE: 02/28/2017 SUBJECTIVE: This patient is sleepy but arousable. As per the nurse, she has been agitated on and off. She has been refusing food and because she has been trying to pull out lines and De Oliveira catheter she has been placed on restraints. Today her hemoglobin dropped from 8.5, a couple days ago to 7.1. I have ordered an occult blood in the stool and I have ordered also a hemoglobin and hematocrit at 4 p.m. today. Her kidney function is getting much better. BUN is normal and creatinine is 1.3, down from 5.7. I will continue with the same management. This patient apparently has a strong history of alcohol abuse. Apparently she stopped drinking a couple months ago but I am not quite sure. She does not have any signs or symptoms of withdrawal. We do have also a urine culture that showed E. coli and this patient has been placed on antibiotics. WBC 4.4, hemoglobin 7.1, hematocrit 21.3, platelet 275,000. Sodium 135, potassium 4.7, chloride 105, bicarbonate 19. BUN 20, creatinine 1.3, glucose 104, calcium 8.6. Phosphorus 2.4. ASSESSMENT AND PLAN: 1. Acute kidney injury. Baseline creatinine unknown. It is improving. BUN is normal. Creatinine is 1.3, down from 5.7. We will continue with the same management. 2. Hyperkalemia resolved. 3. Hyponatremia resolved. 4. Hypophosphatemia. I will ask for phosphorus level tomorrow. 5. Acidosis. Improved. Her anion gap initially was 25 and today is 11. 6. Anemia. The hemoglobin is 7.7. I will ask for a new hemoglobin and hematocrit today in the afternoon at 4 p.m. to corroborate this anemia. In case of low hemoglobin I will transfuse this patient. 7. History of schizophrenia. Aware. Probably this patient has a flare. 8. History of hypothyroidism. Continue with Synthroid. 9. Agitation. Probably we will continue using Haldol or Ativan p.r.n. 10. Urinary tract infection. Continue with ceftriaxone. 11. History of alcohol abuse. I am not quite sure when was the last time she drank alcohol. We will continue to monitor this patient for DTs and withdrawal. cc: Satnam Suero MD
[2017-02-28 16:39] LABS: MANUAL DIFF NEEDED? NO
[2017-02-28 16:51] LABS: HEMATOCRIT 21.8 % (37.0-47.0); HEMOGLOBIN 7.3 g/dL (12.0-16.0); IMM GRAN# 0.06 X1000 (0.0-0.04); IMM GRAN% 1.5 % (0.0-0.5); LYMPH# 0.61 X1000 (1.2-3.4); LYMPH% 14.8 % (20.5-51.1); MCH 31.2 PG (27-31); MCHC 33.5 g/dL (33-37); MCV 93.2 FL (81-99); MONO# 0.21 X1000 (0.11-0.59); MONO% 5.1 % (1.7-9.3); MPV 9.4 FL (7.4-10.4); NEUT% 78.6 % (42.2-75.2); PLT 259 X1000 (130-400); RBC 2.34 XMIL (4.2-5.4)
[2017-02-28] MEDS: SEROQUEL XR PO SCH (22:07)
[2017-03-01] MEDS: SOLU-CORTEF IV SCH ×3 (01:56→16:36)
[2017-03-01 06:30] LABS: MANUAL DIFF NEEDED? NO
[2017-03-01 06:35] LABS: EOS# 0.02 X1000 (0.0-0.7); EOS% 0.4 % (0.0-10.0); HEMATOCRIT 21.6 % (37.0-47.0); HEMOGLOBIN 7.2 g/dL (12.0-16.0); IMM GRAN# 0.09 X1000 (0.0-0.04); IMM GRAN% 1.8 % (0.0-0.5); LYMPH# 1.21 X1000 (1.2-3.4); LYMPH% 24.7 % (20.5-51.1); MCH 31.3 PG (27-31); MCHC 33.3 g/dL (33-37); MCV 93.9 FL (81-99); MONO% 6.1 % (1.7-9.3); MPV 9.4 FL (7.4-10.4); PLT 245 X1000 (130-400)
[2017-03-01] MEDS: NS 1,000 ML IV SCH ×3 (06:38→20:43)
[2017-03-01] MEDS: SYNTHROID IV SCH (06:41)
[2017-03-01 07:16] LABS: CALCIUM 8.6 mg/dL (8.8-10.2); POTASSIUM 3.9 mmol/L (3.5-5.1)
[2017-03-01] MEDS: BUSPAR PO SCH ×3 (08:24→16:36)
[2017-03-01] MEDS: PRILOSEC PO SCH ×2 (08:24→20:39)
[2017-03-01] MEDS: PERICOLACE PO SCH ×2 (08:24→20:39)
[2017-03-01] MEDS: LEXAPRO PO SCH (08:24)
[2017-03-01] MEDS: HEPARIN SUBQ SCH ×2 (08:24→20:40)
[2017-03-01] MEDS: KLONOPIN PO SCH ×2 (08:35→20:40)
[2017-03-01] MEDS: WELLBUTRIN SR PO SCH ×2 (08:38→20:40)
[2017-03-01] MEDS: ROCEPHIN 1 GM/NS 1 GM/50 ML IVPB IV SCH (13:19)
--- NOTE | 2017-03-01 14:06 | PROGRESS NOTE ---
DATE: 03/01/2017 SUBJECTIVE: Family members at the bedside, her mom and dad. This patient looks more alert and more oriented today. She is more cooperative, she is not on restraints. We have a positive urine culture that showed E. coli. This patient was admitted with acute kidney injury that is resolving right now. BUN is normal and creatinine is 1.1. We do not have a baseline. Her hemoglobin is low. We will keep an eye on that. This patient has history of schizophrenia. This patient also has a history of alcohol abuse but apparently she has not been drinking for the past 8 weeks or so. OBJECTIVE: Vital Signs: Temperature 97.8 degrees, pulse 90, respiratory rate 16, blood pressure 154/93, O2 saturation 100% on room air. HEENT: Head normocephalic. No trauma. PERRLA. Neck: Supple. No JVD. No masses. Central trachea. Chest: Clear to auscultation. No wheezing. No rales. Abdomen: Soft, nontender, nondistended. No hepatosplenomegaly. Extremities: No edema. No clubbing. No cyanosis. Neurological: The patient is alert. Her answers are slow. She is oriented x3. She is able to recognize her parents and she is following commands. She moves all 4 extremities. LABORATORY: WBC 4.8, hemoglobin 7.2, hematocrit 21.6, platelets 245,000. Sodium 136, potassium 3.9, chloride 105, bicarbonate 20, BUN 15, creatinine 1.1, glucose 90, calcium 8.6. ASSESSMENT AND PLAN: 1. Acute kidney injury. Baseline unknown but BUN is normal and creatinine is 1.1. This is much better compared with admission. Continue to monitor. 2. Altered mental status. This is getting much better. This patient has a history of schizophrenia and alcohol abuse, apparently the last time that she drank was 8 weeks ago or so. Will monitor. 3. Hypernatremia resolved. 4. Hyponatremia resolved. 5. Anemia. The hemoglobin is above 7 and vital signs are stable. We will continue to monitor. 6. History of schizophrenia. Aware. 7. History of hypothyroidism. Continue with Synthroid. 8. Agitation. She has she has not been agitated today but we have Haldol or Ativan p.r.n. 9. Urinary tract infection. Continue with ceftriaxone. 10. History of alcohol abuse. I had a conversation today with this patient about alcohol abuse. Apparently the last time that she drank alcohol was 8 weeks ago. We will continue to monitor this patient for DTs and withdrawal. 11. Possible hypothyroidism. I will repeat the TSH and T4 tomorrow, and I will start treatment tomorrow if the TSH and T4 are abnormal. cc: Satnam Suero MD
[2017-03-01] MEDS ORDERED: CALMOSEPTINE OINTMENT TOP PRN (16:11)
[2017-03-01] MEDS: SEROQUEL XR PO SCH (20:39)
[2017-03-02] MEDS: SOLU-CORTEF IV SCH ×4 (02:20→23:59)
[2017-03-02] MEDS: NS 1,000 ML IV SCH ×3 (04:21→23:56)
[2017-03-02] MEDS: SYNTHROID IV SCH (06:34)
[2017-03-02 07:11] LABS: MANUAL DIFF NEEDED? NO
[2017-03-02 07:17] LABS: HEMATOCRIT 21.8 % (37.0-47.0); HEMOGLOBIN 7.4 g/dL (12.0-16.0); IMM GRAN# 0.09 X1000 (0.0-0.04); IMM GRAN% 2.1 % (0.0-0.5); LYMPH# 0.76 X1000 (1.2-3.4); LYMPH% 17.8 % (20.5-51.1); MCH 31.8 PG (27-31); MCHC 33.9 g/dL (33-37); MCV 93.6 FL (81-99); MONO# 0.32 X1000 (0.11-0.59); MONO% 7.5 % (1.7-9.3); NEUT% 72.6 % (42.2-75.2); PLT 225 X1000 (130-400); RBC 2.33 XMIL (4.2-5.4)
[2017-03-02 07:39] LABS: ALBUMIN 3.2 g/dL (3.5-5.0); CALCIUM 7.9 mg/dL (8.8-10.2); POTASSIUM 3.6 mmol/L (3.5-5.1)
[2017-03-02 07:47] LABS: FREE T4 1.75 ng/dL (0.93-1.70)
[2017-03-02] MEDS ORDERED: SYNTHROID IV SCH (08:02)
[2017-03-02 08:20] LABS: IRON SATURATION 31 %; TIBC 177 ug/dL; TOTAL IRON 55 ug/dL (49-151); UNBOUND IRON 122 ug/dL (112-346)
[2017-03-02] MEDS: BUSPAR PO SCH ×3 (10:15→17:50)
[2017-03-02] MEDS: KLONOPIN PO SCH ×2 (10:16→20:00)
[2017-03-02] MEDS: LEXAPRO PO SCH (10:16)
[2017-03-02] MEDS: PERICOLACE PO SCH ×2 (10:16→19:59)
[2017-03-02] MEDS: HEPARIN SUBQ SCH ×2 (10:16→20:00)
[2017-03-02] MEDS: CENTRUM SILVER PO SCH (10:16)
[2017-03-02] MEDS: WELLBUTRIN SR PO SCH ×2 (10:16→19:59)
[2017-03-02] MEDS: PRILOSEC PO SCH ×2 (10:16→20:00)
[2017-03-02] MEDS: ROCEPHIN 1 GM/NS 1 GM/50 ML IVPB IV SCH (13:36)
--- NOTE | 2017-03-02 18:25 | PROGRESS NOTE ---
DATE: 03/02/2017 SUBJECTIVE: No family members at the bedside. This patient is about the same compared with yesterday. She is eating just bites. Her appetite is slow. It looks like her hypothyroidism has not been controlled. I increased the dose of levothyroxine from 100 mcg daily to 112 mcg daily and it has to be monitored in 6 weeks. Also I asked already for anemia workup. Her hemoglobin has been stable but low. This patient is stable but she is still having confusion on and off. She is following commands. OBJECTIVE: Vital Signs: Temperature 98.2 degrees, pulse 82, respiratory rate 16, blood pressure 146/97. O2 saturation 100% on room air. HEENT: Head normocephalic. No trauma. PERRLA. Neck: Supple. No JVD. No masses. Central trachea. Chest: Clear to auscultation. No wheezing. No rales. Abdomen: Soft, nontender, nondistended. No hepatosplenomegaly. Extremities: No edema. No clubbing. No cyanosis. Neurological: The patient is alert. She is answering questions but her answers are slow. She is oriented x3 but this is on and off. She is able to recognize her parents and she is following commands. She moves all 4 extremities. LABORATORY: WBC 4.2, hemoglobin 7.4, hematocrit 21.8, platelets 255,000. Sodium 136, potassium 3.6, chloride 103, bicarbonate 21. BUN 13, creatinine 1.1. Glucose 103. Calcium 7.9. Albumin 3.2. TSH 6.08, free T4 1.75. Folate 7.9, which is low. ASSESSMENT AND PLAN: 1. Altered mental status. This is getting better. This patient has history of schizophrenia and alcohol abuse. Apparently the last time that she drank alcohol was around 8 weeks ago or so. Will monitor. She is not having any signs or symptoms of withdrawal or delirium tremens. 2. Acute kidney injury. Baseline unknown. BUN is normal. Creatinine is 1.1. This is much better compared with admission. Probably this is her baseline. 3. Hyponatremia resolved. 4. Anemia. Probably this is related to folate deficiency. I will replace the folic acid. 5. History of schizophrenia. Aware. 6. History of hypothyroidism. I will continue with Synthroid. Probably this patient has not been taking her medications as prescribed. Will monitor. 7. Agitation. She has not been agitated for the past couple days. She has been on Haldol and Ativan p.r.n. 8. Urinary tract infection. Continue with ceftriaxone. Urine culture showed E. coli that is sensitive to ceftriaxone. 9. History of alcohol abuse. I had a conversation yesterday with the patient about alcohol abuse. Apparently the last time she drank alcohol was 8 weeks ago. We will continue to monitor this patient for DTs and withdrawal. cc: Satnam Suero MD
[2017-03-02] MEDS: SEROQUEL XR PO SCH (19:58)
[2017-03-03] MEDS: SYNTHROID IV SCH (06:07)
[2017-03-03] MEDS: NS 1,000 ML IV SCH ×3 (06:08→23:15)
[2017-03-03 07:49] LABS: ALBUMIN 3.1 g/dL (3.5-5.0); CALCIUM 7.9 mg/dL (8.8-10.2); POTASSIUM 2.7 mmol/L (3.5-5.1)
[2017-03-03] MEDS ORDERED: KLOR-CON PO ONE (08:11)
[2017-03-03] MEDS: BUSPAR PO SCH ×3 (09:21→18:21)
[2017-03-03] MEDS: KLONOPIN PO SCH ×2 (09:21→20:24)
[2017-03-03] MEDS: CENTRUM SILVER PO SCH (09:21)
[2017-03-03] MEDS: WELLBUTRIN SR PO SCH ×2 (09:21→20:25)
[2017-03-03] MEDS: LEXAPRO PO SCH (09:21)
[2017-03-03] MEDS: PERICOLACE PO SCH ×2 (09:21→20:24)
[2017-03-03] MEDS: PRILOSEC PO SCH ×2 (09:21→20:24)
[2017-03-03] MEDS: FOLIC ACID PO SCH (09:22)
[2017-03-03] MEDS: HEPARIN SUBQ SCH ×2 (09:22→20:24)
[2017-03-03] MEDS: SOLU-CORTEF IV SCH ×2 (09:22→18:21)
[2017-03-03] MEDS ORDERED: G.I. COCKTAIL PO ONE (10:00)
--- NOTE | 2017-03-03 13:38 | PROGRESS NOTE ---
DATE: 03/03/2017 SUBJECTIVE: No family members at the bedside. This patient is complaining of severe epigastric pain, her appetite is low. Her hemoglobin is around 7.2-7.4, I will ask for occult blood in the stool and also for GI evaluation. Probably this patient will need to be scoped. OBJECTIVE: Vital Signs: Temperature 97.8 degrees, pulse 83, respiratory rate 18, blood pressure 144/93, O2 saturation 100% on room air. HEENT: Head normocephalic. No trauma. PERRLA. Neck: Supple. No JVD. No masses. Central trachea. Chest: Clear to auscultation. No wheezing. No rales. Abdomen: Soft, mild tender to palpation at the level of the epigastric area. Nondistended. Positive bowel sounds. Extremities: No edema. No clubbing. No cyanosis. Neurological: The patient is alert. She is oriented x3. She is able to recognize people and she is following commands. She moves all 4 extremities but her answers are slow. LABORATORY: Sodium 138, potassium 2.7, chloride 102, bicarbonate 21, BUN 11, creatinine 1, glucose 107, calcium 7.9, phosphorus 2.7, albumin 3.1. ASSESSMENT AND PLAN: 1. Altered mental status. This is getting much better, she is alert and oriented x3 but her answers are slow, apparently the last time that she drank alcohol was around 8-9 weeks ago or so. Will monitor. She is not having any signs or symptoms or withdrawal or delirium tremens. 2. Acute kidney injury. It looks like this is her baseline, we do not have any previous records. But this is much better compared with admission. 3. Hyponatremia resolved. 4. Hypokalemia. I will replace the potassium today. 5. Anemia. This is likely related to folate deficiency. I am replacing the folic acid but also this patient is complaining of severe epigastric pain. I have ordered an occult blood in the stool and also I placed a consult for gastroenterology department to see this patient. 6. History of schizophrenia aware. 7. History of hypothyroidism. Continue with Synthroid. Probably this patient has not been taking her medication as prescribed. Will monitor. 8. Agitation resolved. 9. Urinary tract infection secondary to Escherichia coli sensitive to ceftriaxone. 10. History of alcohol abuse aware. Apparently the last time she had a drink was 8-9 weeks ago. Will continue to monitor. cc: Satnam Suero MD
[2017-03-03] MEDS: ROCEPHIN 1 GM/NS 1 GM/50 ML IVPB IV SCH (14:15)
[2017-03-03] MEDS: SEROQUEL XR PO SCH (20:24)
--- NOTE | 2017-03-03 21:22 | CONSULTATION ---
DATE OF CONSULTATION: 03/03/2017 REFERRING PHYSICIAN: Dr. Satnam Fay M.D. INDICATION FOR CONSULTATION: 1. Anemia. 2. Guaiac-positive stools. HISTORY OF PRESENT ILLNESS: The patient is a 56-year-old white female who has a past medical history that includes schizophrenia, depression, gastroesophageal reflux disease , and anemia. She was admitted with altered mental status, hyponatremia, and failure to thrive. The patient is unable to provide a history. Her parents were at bedside. She complains of severe heartburn, epigastric pain, and constipation. She has had no evaluation today. We are asked to perform endoscopic evaluation, as she also has a history of chronic alcohol abuse, and has been in rehab at least 5 times in the past. Her mother believes that she was actively drinking prior to her most recent admission. PAST MEDICAL HISTORY: 1. Schizophrenia. 2. Depression. 3. Hypothyroidism. 4. Hypertension. 5. GERD. 6. Anemia. PAST SURGICAL HISTORY: Unknown. SOCIAL HISTORY: The patient reportedly drinks beer from the time she gets up until the time she goes to bed. She is single, with a 14-year-old daughter who lives with her grandparents. There is no information regarding the potential for illicit drug use. ALLERGIES: The patient has no known allergies. HOME MEDICATIONS: 1. Losartan/hydrochlorothiazide. 2. Prilosec. 3. Buspirone. 4. Meloxicam. 5. Lexapro. 6. Clonazepam. 7. Quetiapine fumarate. 8. Bupropion. REVIEW OF SYSTEMS: Difficult to obtain, as the patient struggles to answer simple questions. PHYSICAL EXAMINATION: Vital Signs: Her blood pressure is 144/93, pulse of 83, respiration 18, temperature of 97.8 degrees. HEENT: Negative for jaundice. Oropharyngeal mucosal membranes are dry. Pulmonary: Lungs are clear to auscultation, with normal expiratory effort. Cardiovascular: Reveals regular rate and rhythm, with no murmurs, gallops, or rubs. Abdominal: Reveals normoactive bowel sounds. The abdomen is soft, with mild epigastric tenderness , but no rebound or guarding. OBJECTIVE DATA: Labs from 03/02/2017, with a hemoglobin of 7.4, hematocrit of 21.8, and a white count of 4.28. She has 225,000 platelets. Serum chemistries from 03/03/2017 are remarkable for sodium of 138, potassium 2.7, chloride 102, CO2 of 21, BUN 11, creatinine 1.0, with a glucose of 107. Calcium is 7.9, phosphorus 2.7, albumin 3.1, and vitamin B12 of 293. IMPRESSION: 1. Anemia. 2. Epigastric pain. 3. Heartburn. 4. Vitamin B12 deficiency. 5. Hypokalemia. 6. Hypophosphatemia. RECOMMENDATION: 1. To further evaluate the anemia and the epigastric pain, we will schedule the patient for an EGD on Sunday. 2. Please correct her electrolytes prior to endoscopy, so that we may safely administer sedation. 3. Begin vitamin B12 injections 1000 mcg subcutaneous daily for 7 days, then weekly for 1 month, followed by monthly injections. She will need a repeat assessment of her vitamin B12 level in 6-8 weeks. 4. Continue Prilosec 40 mg p.o. b.i.d. 5. Additional recommendations to follow based on her endoscopic findings. cc: MD Satnam Sultana MD [facility]
[2017-03-04] MEDS: SOLU-CORTEF IV SCH ×3 (00:05→18:17)
[2017-03-04] MEDS: SYNTHROID IV SCH (06:37)
[2017-03-04 07:08] LABS: MANUAL DIFF NEEDED? NO
[2017-03-04 07:17] LABS: EOS# 0.01 X1000 (0.0-0.7); EOS% 0.2 % (0.0-10.0); HEMOGLOBIN 7.5 g/dL (12.0-16.0); IMM GRAN# 0.03 X1000 (0.0-0.04); IMM GRAN% 0.6 % (0.0-0.5); LYMPH# 0.62 X1000 (1.2-3.4); LYMPH% 13.1 % (20.5-51.1); MCH 31.8 PG (27-31); MCHC 34.1 g/dL (33-37); MCV 93.2 FL (81-99); MONO# 0.41 X1000 (0.11-0.59); MONO% 8.6 % (1.7-9.3); MPV 9.8 FL (7.4-10.4); NEUT% 77.5 % (42.2-75.2); PLT 219 X1000 (130-400); RBC 2.36 XMIL (4.2-5.4)
[2017-03-04 07:30] LABS: AGAP 12; BUN 8 mg/dL (8-22); CALCIUM 7.8 mg/dL (8.8-10.2); CHLORIDE 98 mmol/L (98-107); COSMO 268; SODIUM 135 mmol/L (136-145); TCO2 25 mmol/L (25-35)
[2017-03-04 08:11] LABS: POTASSIUM 2.4 mmol/L (3.5-5.1)
[2017-03-04] MEDS ORDERED: KLOR-CON PO ONE ×2 (08:18→13:00)
[2017-03-04] MEDS: FOLIC ACID PO SCH (08:53)
[2017-03-04] MEDS: KLONOPIN PO SCH ×2 (08:53→22:23)
[2017-03-04] MEDS: LEXAPRO PO SCH (08:53)
[2017-03-04] MEDS: WELLBUTRIN SR PO SCH ×2 (08:53→22:26)
[2017-03-04] MEDS: PERICOLACE PO SCH ×2 (08:54→22:27)
[2017-03-04] MEDS: CENTRUM SILVER PO SCH (08:54)
[2017-03-04] MEDS: BUSPAR PO SCH ×3 (08:54→18:17)
[2017-03-04] MEDS: PRILOSEC PO SCH ×2 (08:54→22:27)
[2017-03-04] MEDS: HEPARIN SUBQ SCH ×2 (08:55→22:22)
[2017-03-04] MEDS: ZOFRAN IV PRN (10:23)
--- NOTE | 2017-03-04 13:29 | PROGRESS NOTE ---
DATE: 03/04/2017 SUBJECTIVE: Ms. Smith was admitted back on 02/24/2017 by me. She is making progress. She is eating a little better. The plan is to do an EGD by report and look at her stomach. OBJECTIVE: Vital signs: Today temp 97.9 degrees, pulse 90, respirations 18, blood pressure 145/92. HEENT: Pupils are equal and round. Lungs: Clear in all lung wall. Cardiovascular: Regular rhythm and rate without murmur or S3. Abdomen: Soft. Skin: Warm and dry. LABORATORY: White count is 4,740, hematocrit 22, MCV is 93, platelet count 219,000. Potassium is 2.4. We will supplement that. Sodium 135. Creatinine down to 0.8. Liver functions have improved dramatically. Dr. Tipton consulted. ASSESSMENT AND PLAN: 1. Altered mental status which has improved, multifactorial; alcohol and drug withdrawal. 2. Acute kidney injury which has improved dramatically. 3. Hyponatremia, resolved. 4. Hyperkalemia, improved. Will continue supplement. Low today. Will give her 40 mEq p.o. and repeat that. 5. Anemia related to folate deficiency and nutrition. She continues to complain of severe epigastric pain. Appreciate Dr. Tipton's help. I think the plan is to do an EGD. 6. Schizophrenia, aware. Back on her medications. 7. History of hypothyroidism. 8. General weakness and deconditioning. Seem to be making some progress. cc: Arnold Aldrich MD
[2017-03-04] MEDS: ROCEPHIN 1 GM/NS 1 GM/50 ML IVPB IV SCH (13:50)
[2017-03-04] MEDS: SEROQUEL XR PO SCH (22:26)
[2017-03-04] MEDS: NS 1,000 ML IV SCH (22:27)
[2017-03-05] MEDS: SOLU-CORTEF IV SCH ×3 (00:24→19:01)
[2017-03-05] MEDS: SODIUM CHLORIDE 0.9% INJ PRN (06:24)
[2017-03-05] MEDS: SYNTHROID IV SCH (06:24)
[2017-03-05] MEDS: NS 1,000 ML IV SCH ×2 (12:37→19:13)
[2017-03-05] MEDS ORDERED: DIPRIVAN 1% ONE (13:13)
[2017-03-05] MEDS ORDERED: XYLOCAINE-MPF 2% ONE (13:15)
[2017-03-05] MEDS: ROCEPHIN 1 GM/NS 1 GM/50 ML IVPB IV SCH (15:19)
[2017-03-05] MEDS: FOLIC ACID PO SCH (15:49)
[2017-03-05] MEDS: PRILOSEC PO SCH ×3 (15:49→22:29)
[2017-03-05] MEDS: BUSPAR PO SCH ×3 (15:49→18:56)
[2017-03-05] MEDS: CENTRUM SILVER PO SCH (15:50)
[2017-03-05] MEDS: LEXAPRO PO SCH (15:50)
[2017-03-05] MEDS: PERICOLACE PO SCH ×2 (15:50→22:29)
[2017-03-05] MEDS: WELLBUTRIN SR PO SCH ×2 (15:51→22:29)
[2017-03-05] MEDS: KLONOPIN PO SCH ×2 (16:03→22:29)
[2017-03-05] MEDS ORDERED: POTASSIUM CHLORIDE 20% LIQUID PO ONE (17:42)
[2017-03-05] MEDS: POTASSIUM CHLORIDE 20 MEQ/SWI 20 MEQ/100 ML IVPB IV SCH ×2 (19:15→22:30)
[2017-03-05 20:26] LABS: AGAP 15; BUN 7 mg/dL (8-22); CALCIUM 7.9 mg/dL (8.8-10.2); CHLORIDE 91 mmol/L (98-107); COSMO 268; POTASSIUM 2.8 mmol/L (3.5-5.1); SODIUM 134 mmol/L (136-145); TCO2 28 mmol/L (25-35)
[2017-03-05] MEDS: SEROQUEL XR PO SCH (22:29)
[2017-03-05] MEDS ORDERED: KLOR-CON PO ONE (22:40)
[2017-03-06] MEDS: SOLU-CORTEF IV SCH ×3 (00:17→16:41)
[2017-03-06] MEDS: NS 1,000 ML IV SCH ×3 (00:53→21:58)
--- NOTE | 2017-03-06 03:24 | PROGRESS NOTE ---
DATE: 03/05/2017 SUBJECTIVE: Ms. Smith was upset that she did not get to her EGD and colonoscopy done today. Her potassium is still low. We had given her both p.o. and IV supplemented but it was still low. PHYSICAL EXAMINATION: Vital Signs: Today, temperature 98.7 degrees, pulse was 85, respirations 18, blood pressure 156/91. Lungs: Clear in all lung wall. Cardiovascular Examination: Regular rhythm and rate without murmur or S3. Abdomen: Soft. Skin: Warm and dry. LABORATORY DATA: Potassium is 2.3. ASSESSMENT AND PLAN: 1. Altered mental status, multifactorial, alcohol and drug withdrawal. 2. Acute kidney injury, which is improved. 3. Hyponatremia, resolved. 4. Hyperkalemia, now with potassium depletion. We will supplement some more potassium. I gave her another 60 mEq by mouth and 40 intravenous. Recheck this evening and in the morning. 5. Anemia secondary to folate deficiency and poor nutrition. Hope to get EGD and colonoscopy done. 6. Schizophrenia, aware. 7. Hypothyroidism, appears to be euthyroid. 8. Still on clear liquids. She is getting a little bit stronger. cc: Arnold Aldrich MD
[2017-03-06] MEDS: SYNTHROID IV SCH (06:17)
[2017-03-06] MEDS ORDERED: ROBINUL ONE (06:55)
[2017-03-06] MEDS ORDERED: DIPRIVAN 1% ONE ×2 (06:55)
[2017-03-06] MEDS ORDERED: XYLOCAINE-MPF 2% ONE (06:55)
[2017-03-06 07:26] LABS: AGAP 14; BUN 6 mg/dL (8-22); CALCIUM 7.9 mg/dL (8.8-10.2); CHLORIDE 96 mmol/L (98-107); COSMO 273; MAGNESIUM 1.3 mg/dL (1.5-2.7); POTASSIUM 2.9 mmol/L (3.5-5.1); SODIUM 137 mmol/L (136-145); TCO2 27 mmol/L (25-35)
[2017-03-06 07:32] LABS: HEMATOCRIT 23.8 % (37.0-47.0); HEMOGLOBIN 8.1 g/dL (12.0-16.0); MCH 32.5 PG (27-31); MCV 95.6 FL (81-99); MPV 9.5 FL (7.4-10.4); RBC 2.49 XMIL (4.2-5.4)
[2017-03-06] MEDS: LEXAPRO PO SCH (10:46)
[2017-03-06] MEDS: PRILOSEC PO SCH ×2 (10:46→21:57)
[2017-03-06] MEDS: WELLBUTRIN SR PO SCH ×2 (10:46→21:57)
[2017-03-06] MEDS: FOLIC ACID PO SCH (10:47)
[2017-03-06] MEDS: PERICOLACE PO SCH ×2 (10:47→21:58)
[2017-03-06] MEDS: KLOR-CON PO SCH ×2 (10:47→21:57)
[2017-03-06] MEDS: CENTRUM SILVER PO SCH (10:47)
[2017-03-06] MEDS: KLONOPIN PO SCH ×2 (10:47→21:58)
[2017-03-06] MEDS: BUSPAR PO SCH ×3 (10:47→16:41)
--- NOTE | 2017-03-06 11:40 | CONSULTATION ---
DATE OF CONSULTATION: 03/05/2017 SUBJECTIVE: The patient was brought to the OR today for endoscopic evaluation. However, her potassium was found to be 2.3. Her procedure was canceled. We discussed the importance of replacing her potassium with the primary service. We will plan to perform her endoscopy tomorrow as long as her potassium level is within normal range. cc: MD Arnold Sultana MD
[2017-03-06] MEDS: POTASSIUM CHLORIDE 20 MEQ/SWI 20 MEQ/100 ML IVPB IV SCH ×2 (12:14→15:31)
[2017-03-06] MEDS: CARAFATE LIQUID PO SCH ×2 (14:02→21:56)
--- NOTE | 2017-03-06 14:43 | Diag Imaging Result Doc PS360 ---
EXAM: GI SERIES WITH BA SWALLOW INDICATION: large hiatal hernia vs paraesophageal hernia TECHNIQUE: Oral barium contrast was administered after administration of gas crystals. COMPARISON: None. FINDINGS: There appears to be a small paraesophageal hernia to the left of the distal esophagus. Upon swallowing, there appears to be a few distal esophageal pulsion diverticula versus small ulcerations. No stricture or filling defect is identified in the esophagus, otherwise. No discrete gastric ulceration or filling defect is identified. Barium passes readily through the gastric outlet and into the small bowel. Duodenal sweep is grossly unremarkable. IMPRESSION: 1.Small paraesophageal hernia. 2.Tiny ulcerations versus pulsion diverticula involving the distal esophagus. Electronically signed by Sarbjit Chen 03/06/2017 2:40 PM
[2017-03-06] MEDS: ROCEPHIN 1 GM/NS 1 GM/50 ML IVPB IV SCH (14:55)
--- NOTE | 2017-03-06 15:52 | PROGRESS NOTE ---
DATE: 03/06/2017 Ms. Smith is feeling a little better. The plan is to get a swallow study today. She remains afebrile.Vital signs: Temperature 97.6 degrees, pulse 86, respirations 18, blood pressure 151/94. HEENT: Pupils are equal, round. Lungs: Are clear in all lung wall. Cardiovascular: Regular rhythm and rate without murmur or S3. Abdomen: Soft. Skin: Is warm and dry. Blood sugar 88, 95, 128. ASSESSMENT AND PLAN: 1. Altered mental status. Multifactorial, alcohol and drug withdrawal, making progress. 2. Acute kidney injury which is improving. Renal function improving. 3. Hyponatremia resolved. 4. Hyperkalemia which is resolved as well. 5. Anemia secondary to folate deficiency and poor nutrition. 6. Schizophrenia. Continue present medication. 7. Hypothyroidism. Appears to be euthyroid. She had to have potassium supplements, still potassium 2.9. Give her some more. I would like to get her potassium up closer to 4. cc: Arnold Aldrich MD
[2017-03-06] MEDS ORDERED: MAGNESIUM SULFATE 2 GM/S.W.I. 2 GM/50 ML IVPB IV ONE (20:07)
[2017-03-06] MEDS: SEROQUEL XR PO SCH (21:56)
[2017-03-07] MEDS: SOLU-CORTEF IV SCH ×3 (00:48→16:26)
[2017-03-07] MEDS: CARAFATE LIQUID PO SCH ×4 (01:34→20:50)
[2017-03-07] MEDS: POTASSIUM CHLORIDE 20 MEQ/SWI 20 MEQ/100 ML IVPB IV SCH ×4 (03:14→20:49)
[2017-03-07] MEDS: SYNTHROID IV SCH (06:13)
[2017-03-07] MEDS: SODIUM CHLORIDE 0.9% INJ PRN (06:13)
--- NOTE | 2017-03-07 07:53 | OPERATIVE NOTE ---
PROCEDURE DATE: 03/07/2017 REFERRING PHYSICIAN: Arnold Aldrich M.D. INDICATIONS FOR PROCEDURE: 1. Nausea with vomiting. 2. Epigastric pain. 3. History of ETOH abuse. PROCEDURE PERFORMED: Esophagogastroduodenoscopy with biopsy. CONSENT: Informed consent was obtained from the patient and her parents prior to the procedure. The risks, benefits, and alternatives were discussed. MEDICATION: The patient received monitored anesthesia care. PERFORMING PHYSICIAN: Margo Tipton M.D. ASSISTANTS: 1. ST. [facility] 2. Gabriela Johnson RN. 3. Cristina Lucia CRNA. 4. Pascual Crews M.D. (anesthesia) COMPLICATIONS: There were no complications. ESTIMATED BLOOD LOSS: Less than 1 mL. SPECIMENS REMOVED: Gastric biopsy. FINDINGS: After sedation was achieved, the upper endoscope was inserted to the 2nd portion of the duodenum. The hypopharynx appeared normal. In the tubular esophagus, the mucosa appeared normal to approximately 25 cm. From 25-35 cm, there was severe grade D erosive esophagitis. There were possible islands of squamous mucosa, such that one could not rule out the presence of Queen's esophagus. There was a Schatzki's ring at the GE junction at 35 cm from the incisors. There was a large hiatal hernia with a possible paraesophageal component that spanned from 35-42 cm. At the diaphragmatic hiatus, the mucosa was erythematous suggesting recurrent traction. In the gastric body, there was nonerosive gastritis with possible portal gastropathy. On retroflexed view, the large hiatal and paraesophageal hernias were visualized. On forward view, the pylorus appeared normal. In the duodenal bulb, there was mild duodenitis. The second portion of the duodenum appeared normal as did the ampulla of Vater. Upon withdrawal of the scope, there was no obvious esophageal or gastric varices. After biopsies were taken from the gastric mucosa, the lumen was decompressed and the scope was removed without incident. IMPRESSION: 1. Grade D erosive esophagitis. 2. Possible Queen's mucosa. 3. Schatzki's ring at the gastroesophageal junction. 4. Large hiatal hernia from 35-42 cm. 5. Possible paraesophageal hernia. 6. Nonerosive gastritis. 7. Possible portal gastropathy. 8. Duodenitis limited to the bulb. RECOMMENDATION: 1. Await biopsy results. 2. Continue Nexium 40 mg p.o. b.i.d. 3. Add Carafate 1 g p.o. 4 times a day for 12 weeks and then stop. 4. I strongly suspect the patient has a paraesophageal hernia. I will obtain an upper GI today. I spoke with Dr. Jose Nova, who will see her in the office after she has been successfully treated for her esophagitis if the upper GI confirms the presence of a periesophageal hernia. 5. The patient notes intermittent dysphagia after the procedure. I will plan to perform an EGD with dilation in 12 weeks depending on her clinical response to medical management. 6. We will have the patient return to clinic in 3-4 weeks to assess interval progress. cc: MD Arnold Sultana MD MTDD
[2017-03-07] MEDS: LEXAPRO PO SCH (09:12)
[2017-03-07] MEDS: KLONOPIN PO SCH ×2 (09:12→20:50)
[2017-03-07] MEDS: PRILOSEC PO SCH ×2 (09:13→20:50)
[2017-03-07] MEDS: FOLIC ACID PO SCH (09:13)
[2017-03-07] MEDS: WELLBUTRIN SR PO SCH (09:13)
[2017-03-07] MEDS: KLOR-CON PO SCH ×2 (09:13→20:50)
[2017-03-07] MEDS: CENTRUM SILVER PO SCH (09:13)
[2017-03-07] MEDS: PERICOLACE PO SCH ×2 (09:13→20:50)
[2017-03-07] MEDS: BUSPAR PO SCH ×3 (09:13→16:25)
[2017-03-07] MEDS: NS 1,000 ML IV SCH (12:34)
[2017-03-07] MEDS: ROCEPHIN 1 GM/NS 1 GM/50 ML IVPB IV SCH (13:32)
[2017-03-07] MEDS ORDERED: MAGNESIUM SULFATE 2 GM/S.W.I. 2 GM/50 ML IVPB IV ONE (16:25)
--- NOTE | 2017-03-07 22:24 | PROGRESS NOTE ---
DATE: 03/07/2017 SUBJECTIVE: Ms. Smith is sitting up in a chair. She is feeling better. She of the understanding she is going to get a colonoscopy and she said she needs some procedure done on her neck to help her swallow. She is still on clear liquids. OBJECTIVE: Vital signs: Remains afebrile, pulse 88, respirations 16, blood pressure 147/95. Eyes: Pupils are equal, round. Lungs: Are clear in all lung wall. Cardiovascular: Regular rhythm and rate without murmur or S3. Abdomen: Soft. Skin: Warm and dry. : Urine output is 2800. LABORATORY: White count 3400, hematocrit 23, platelet count 214,000. Sodium 137, potassium 2.9, chloride 96, BUN 6 creatinine 0.8, magnesium 1.3. ASSESSMENT AND PLAN: 1. Alcohol and drug abuse. Presented with hepatic dysfunction as well as a severe acute kidney injury. These are improving. 2. She had an esophagogastroduodenoscopy because of her nausea and vomiting, epigastric pain, history of ethanol use. She had grade D erosive esophagitis. Possible Queen's mucosa. Schatzki's ring in the gastroesophageal junction. Large hiatal hernia of 35-42 cm possible, paraesophageal hernia, and nonerosive gastritis. Possible portal gastropathy. Duodenitis limited to the bulb. So I would continue the Nexium and the Carafate. Dr. Tipton would like to perform an EGD and dilatation in about 12 weeks depending on clinical response, medical response. Dr. Nova will see her in his office after successfully treated for esophagitis to think about further treatment for paraesophageal hernia. I do not see any plans for colonoscopy. I am going to supplement her potassium, magnesium and I think we can advance her to a soft diets. cc: Arnold Aldrich MD
[2017-03-08] MEDS: NS 1,000 ML IV SCH ×5 (01:11→21:01)
[2017-03-08] MEDS: MAG-OX PO SCH ×3 (01:23→20:37)
[2017-03-08] MEDS: CARAFATE LIQUID PO SCH ×4 (01:23→20:39)
[2017-03-08] MEDS: SEROQUEL XR PO SCH ×2 (01:23→20:38)
[2017-03-08] MEDS: SOLU-CORTEF IV SCH ×3 (01:23→17:21)
[2017-03-08] MEDS: WELLBUTRIN SR PO SCH ×3 (01:23→20:39)
[2017-03-08] MEDS: SYNTHROID IV SCH (06:37)
[2017-03-08] MEDS: SODIUM CHLORIDE 0.9% INJ PRN (06:37)
[2017-03-08] MEDS: PRILOSEC PO SCH ×2 (06:38→17:22)
[2017-03-08 06:56] LABS: MANUAL DIFF NEEDED? NO
--- NOTE | 2017-03-08 06:56 | PROGRESS NOTE ---
DATE: 03/07/2017 SUBJECTIVE: The patient continues to have chest pain, heartburn and indigestion. She was noted to have a paraesophageal hernia. Based on the upper GI, I have addressed the presence of the paraesophageal hernia with Dr. Jose Nova. He plans to see her upon discharge. The patient was actually anxious about her hernia and wanted to have surgery immediately. She likes Dr. Nova but her family would like for her to be evaluated by a surgeon at [facility]. We reviewed her findings including severe gastroesophageal reflux, gastritis and duodenitis on EGD. She will need treatment for a few weeks before the mucosa is healed enough to undergo surgical intervention. She reports that the Carafate is helping but the relief is short-lived. She states that she needs something in addition to help with the pain. OBJECTIVE: Vital Signs: Her on exam, blood pressure is 142/88 pulse is 95, respirations 16, temperature of 98.3 degrees. HEENT: Unremarkable. Pulmonary: Lungs are clear. On abdominal exam, her abdomen is soft with minimal epigastric tenderness but no rebound or guarding. OBJECTIVE DATA: There were no labs today. RECOMMENDATION: 1. Continue Prilosec twice a day but change to twice a day before meals so that she receives her dose at 9 a.m. and 4 p.m. 2. I will add Pepcid 40 mg at bedtime to help reduce her total acid production. 3. Continue Carafate 1 g p.o. 4 times a day. 4. She will need to schedule an appointment with Dr. Jose Nova upon discharge. 5. In 12 weeks, she may need a repeat EGD with dilation if she continues to have dysphagia. However, if she has surgical repair, we would defer any endoscopic intervention pending surgical management. 6. The patient is 56 years old and has never had a screening colonoscopy. We will schedule this sometime in the next 6 months based on her decision regarding repair of the hernia. 7. The patient is improving clinically. Please have her return to our office 2- 3 weeks after hospital discharge for interval reassessment. cc: MD Arnold Sultana MD Robert C. Walker, MD [facility] HOSPITALKirsten
[2017-03-08 07:31] LABS: AGAP 9; ALBUMIN 3.3 g/dL (3.5-5.0); ALKALINE PHOSPHATASE 58 U/L (32-104); BUN 10 mg/dL (8-22); CALCIUM 8.4 mg/dL (8.8-10.2); CHLORIDE 104 mmol/L (98-107); COSMO 272; GOT 17 U/L (10-30); GPT 35 U/L (10-36); MAGNESIUM 2.1 mg/dL (1.5-2.7); POTASSIUM 4.8 mmol/L (3.5-5.1); SODIUM 136 mmol/L (136-145); TCO2 23 mmol/L (25-35); TOTAL BILIRUBIN 0.31 mg/dL (0.20-1.00); TOTAL PROTEIN 5.8 g/dL (6.3-8.3)
[2017-03-08 08:05] LABS: EOS# 0.01 X1000 (0.0-0.7); EOS% 0.2 % (0.0-10.0); HEMATOCRIT 23.5 % (37.0-47.0); HEMOGLOBIN 7.6 g/dL (12.0-16.0); IMM GRAN# 0.04 X1000 (0.0-0.04); IMM GRAN% 0.9 % (0.0-0.5); LYMPH# 0.44 X1000 (1.2-3.4); LYMPH% 10.3 % (20.5-51.1); MCH 31.7 PG (27-31); MCHC 32.3 g/dL (33-37); MCV 97.9 FL (81-99); MONO# 0.25 X1000 (0.11-0.59); MONO% 5.8 % (1.7-9.3); MPV 9.7 FL (7.4-10.4); NEUT% 82.8 % (42.2-75.2); PLT 227 X1000 (130-400)
[2017-03-08] MEDS: KLONOPIN PO SCH ×2 (09:24→21:00)
[2017-03-08] MEDS: PERICOLACE PO SCH ×2 (09:24→20:39)
[2017-03-08] MEDS: BUSPAR PO SCH ×3 (09:24→17:21)
[2017-03-08] MEDS: FOLIC ACID PO SCH (09:24)
[2017-03-08] MEDS: LEXAPRO PO SCH (09:24)
[2017-03-08] MEDS: KLOR-CON PO SCH ×2 (09:25→20:39)
[2017-03-08] MEDS: CENTRUM SILVER PO SCH (09:25)
[2017-03-08] MEDS: ROCEPHIN 1 GM/NS 1 GM/50 ML IVPB IV SCH (13:32)
--- NOTE | 2017-03-08 17:29 | PROGRESS NOTE ---
DATE: 03/08/2017 She is feeling better. She understands that she is not going to get an EGD or colonoscopy. We are waiting for her esophagus to heal and she is making improvement but she is very weak. Cannot walk without a good deal of assistance. She wants to still try and go home so we are going to try to aim for Sunday. Continue physical therapy.Vital signs: Temperature 98.3 degrees, pulse 117, respirations 20, blood pressure 155/103. Her blood pressures have ranged in the 140s to 150s systolic and diastolic 88 to 110. May go up a little bit on her blood pressure medicine. Her blood sugars 114, 185, 137. Good urine output. ASSESSMENT AND PLAN: 1. Continues to have some heartburn and indigestion. She has a periesophageal hernia on upper GI. That periesophageal hernia will be evaluated by Dr. Nova as an outpatient. He plans to see her on discharge. She has some duodenitis and gastritis and we want this to heal up. 2. She presented with metabolic encephalopathy which is resolved, alcohol and opioid medication withdrawal. 3. Continues to be very weak with poor renal function and has improved. Good urine output. Discharge, still I think she wants to try and go home. I will continue physical therapy. Continue present drug regimen. I think we can stop the ceftriaxone. cc: Arnold Aldrich MD
--- NOTE | 2017-03-08 18:12 | PROGRESS NOTE ---
DATE: 03/08/2017 SUBJECTIVE: The patient states that she is feeling much better and tolerating her diet since we adjusted her omeprazole to 40 mg before breakfast and before dinner. I also added Pepcid 40 mg 1 p.o. at bedtime. According to the nurses, she is eating most of her food with significantly less chest pain and abdominal pain. She continues to have some symptomatic breakthrough, but reports it is controllable. OBJECTIVE: On exam, her blood pressure is 155/103, pulse of 117, respirations 20, temperature of 98.3. Her exam was deferred as she was eating. LABS: Objective data is remarkable for hemoglobin of 7.6 with hematocrit of 23.5, and a white count of 4.28. She has 277,000 platelets. Sodium is 136, potassium 4.8, chloride 104, CO2 of 23, BUN 10, creatinine 0.9 with a glucose of 116. Calcium is 8.4, magnesium 2.1, total bilirubin 0.31, AST 17, ALT 35, alkaline phosphatase 58, total protein 5.8, and albumin 3.1. IMPRESSION: 1. Nausea with vomiting, improved. 2. Gastroesophageal reflux disease. 3. Paraesophageal hernia. 4. Elevated liver function tests. 5. Alcohol liver disease. 6. Iron-deficiency anemia. RECOMMENDATION: 1. The patient has improved clinically with medical management. However, she is not totally symptom-free. For the time being, I would continue her current regimen. 2. She has evidence of a paraesophageal hernia on upper GI. I will schedule her to see Jose Nova MD as an outpatient upon discharge. 3. Her hemoglobin is low, but remains stable. There are no signs or symptoms of active GI bleeding. I will continue to monitor her level. 4. Electrolyte abnormalities. Her potassium has improved significantly as has her magnesium. We will continue to monitor these levels. 5. The patient has a history of alcohol and drug abuse but denies current use. I will continue to monitor this. 6. The patient has iron-deficiency anemia. This is being monitored by Dr. Arnold Aldrich. Her blood count was stable. I would transfuse only if she has bleeding or if her hemoglobin drops below 7. She may benefit from oral iron therapy. 7. The patient has not had a screening colonoscopy. We will schedule her as an outpatient for colonoscopy within the next 6-12 months. cc: MD Satnam Sultana MD Allen J. Schmidt, MD MTDD
[2017-03-08] MEDS: PEPCID PO SCH ×2 (20:38→23:00)
[2017-03-08] MEDS: ATIVAN IV PRN (21:02)
[2017-03-09] MEDS: CARAFATE LIQUID PO SCH ×4 (02:08→20:08)
[2017-03-09] MEDS: SOLU-CORTEF IV SCH ×3 (02:50→20:09)
[2017-03-09] MEDS: PRILOSEC PO SCH ×2 (06:01→16:55)
[2017-03-09] MEDS: SYNTHROID IV SCH (06:01)
[2017-03-09] MEDS: PERICOLACE PO SCH ×2 (08:59→20:09)
[2017-03-09] MEDS: FOLIC ACID PO SCH (08:59)
[2017-03-09] MEDS: LEXAPRO PO SCH (08:59)
[2017-03-09] MEDS: BUSPAR PO SCH ×3 (08:59→16:55)
[2017-03-09] MEDS: WELLBUTRIN SR PO SCH ×2 (08:59→20:09)
[2017-03-09] MEDS: CENTRUM SILVER PO SCH (08:59)
[2017-03-09] MEDS: NS 1,000 ML IV SCH (08:59)
[2017-03-09] MEDS: MAG-OX PO SCH ×2 (08:59→20:08)
[2017-03-09] MEDS: KLOR-CON PO SCH ×2 (08:59→20:09)
[2017-03-09] MEDS: KLONOPIN PO SCH ×2 (09:00→20:08)
[2017-03-09] MEDS: ZOFRAN IV PRN (09:58)
[2017-03-09] MEDS: HYZAAR 100/12.5 MG TAB PO SCH (10:14)
--- NOTE | 2017-03-09 15:37 | PROGRESS NOTE ---
DATE: 03/09/2017 Ms. Smith is sitting up in chair, was calling for someone to help her. She is getting a little stronger. She is eating better. Remains afebrile.Vital signs: Temperature 97.4 degrees, pulse 100, respirations 16, blood pressure 156/108. CVP less than 6 cm. Lungs: Clear in all lung wall. Cardiovascular: Regular rhythm and rate without murmur or S3. Abdomen: Soft. Skin: Is warm and dry. Good urine output. Blood sugar 104, 106, 107. LAB REVIEW: From the hemoglobin 7.6, hematocrit 23. Chemistries looked good from yesterday. Blood sugars 137, 144, 106. ASSESSMENT AND PLAN: 1. Nausea and vomiting, gastroesophageal reflux, paraesophageal hernia, elevated liver function tests, alcohol liver disease. Liver functions improving. Clinically she is better. She is eating better. Renal function improved. 2. Acute kidney injury. Predominantly prerenal and that is improved. Hydration has improved. Volume status is good. 3. Anemia, blood loss anemia and also anemia of chronic disease. Hemoglobin and hematocrit stable. 4. General weakness and deconditioning. Continue physical therapy. She is not ready go home. Hopefully she will be ready after another 48 hours. Continue to work on her strength. Review again of her medicines. She is on Carafate 1 g q.6 hours. She is on sennoside docusate 2 b.i.d. She is on Seroquel 200 mg at bedtime. Potassium chloride 40 mEq b.i.d. Prilosec 40 mg b.i.d. Still getting normal saline at 75 mL an hour. Multivitamin daily. Mag oxide 800 mg b.i.d. Losartan hydrochlorothiazide combination. She is on the 50/12.5 one a day. Ativan as needed. Synthroid 100 mcg IV daily. We will change that to p.o. hydrocortisone 100 mg IV q.8 hours. I think we can decrease that as well. Folic acid 1 mg p.o. daily. Pepcid 40 mg at bedtime. Lexapro 30 mg a day. Klonopin 1 mg b.i.d. BuSpar 30 mg p.o. t.i.d. Wellbutrin 100 mg b.i.d. cc: Arnold Aldrich MD
[2017-03-09] MEDS: ATIVAN IV PRN (19:18)
[2017-03-09] MEDS: SEROQUEL XR PO SCH (20:08)
[2017-03-09] MEDS: PEPCID PO SCH (20:08)
[2017-03-10] MEDS: NS 1,000 ML IV SCH ×2 (02:09→16:41)
[2017-03-10] MEDS: CARAFATE LIQUID PO SCH ×4 (02:09→20:13)
[2017-03-10] MEDS: ATIVAN IV PRN ×4 (05:48→20:13)
[2017-03-10] MEDS: SYNTHROID PO SCH (06:08)
[2017-03-10] MEDS: PRILOSEC PO SCH ×2 (06:08→16:41)
[2017-03-10] MEDS: BUSPAR PO SCH ×3 (08:31→16:41)
[2017-03-10] MEDS: PERICOLACE PO SCH ×2 (08:31→20:14)
[2017-03-10] MEDS: HYZAAR 100/12.5 MG TAB PO SCH (08:31)
[2017-03-10] MEDS: KLONOPIN PO SCH ×2 (08:31→20:14)
[2017-03-10] MEDS: LEXAPRO PO SCH (08:31)
[2017-03-10] MEDS: CENTRUM SILVER PO SCH (08:32)
[2017-03-10] MEDS: FOLIC ACID PO SCH (08:32)
[2017-03-10] MEDS: MAG-OX PO SCH ×2 (08:32→20:13)
[2017-03-10] MEDS: KLOR-CON PO SCH ×2 (08:32→20:14)
[2017-03-10] MEDS: WELLBUTRIN SR PO SCH ×2 (08:32→20:14)
[2017-03-10] MEDS: SOLU-CORTEF IV SCH ×2 (08:32→20:13)
--- NOTE | 2017-03-10 14:03 | PROGRESS NOTE ---
DATE: 03/10/2017 SUBJECTIVE: Ms. Smith is doing better. She is eating better. A little stronger. Continue physical therapy. OBJECTIVE: Vital signs: Temperature 97.6 degrees, pulse 93, respirations 18, blood pressure 146/102. Lungs: Are clear in all lung wall. Cardiovascular: Regular rhythm and rate without murmur or S3. Abdomen: Soft. Skin: Is warm and dry. : Urine output is 2200 mL. LABORATORY: Blood sugar 106, 107, 115. ASSESSMENT AND PLAN: 1. Nausea, vomiting, gastroesophageal reflux, paraesophageal hernia, elevated liver functions, alcoholic liver disease. Presented with metabolic encephalopathy and weakness liver functions improved. 2. Acute kidney injury. Which is improving. 3. Combination anemia chronic disease and poor nutrition as well as iron deficiency. 4. General weakness and deconditioning. Continue physical therapy. PLAN: Hopefully discharge the 1st of the week. We will continue her Carafate and proton pump inhibitor. She will get follow up with Dr. Nova about a paraesophageal hernia. She will follow up with Dr. Tipton in about 6 weeks or so. Consider followup colonoscopy. Review of orders unremarkable. No changes. cc: Arnold Aldrich MD
[2017-03-10] MEDS: PEPCID PO SCH (20:13)
[2017-03-10] MEDS: SEROQUEL XR PO SCH (20:14)
[2017-03-11] MEDS: CARAFATE LIQUID PO SCH ×4 (02:04→22:15)
[2017-03-11] MEDS: NS 1,000 ML IV SCH ×2 (02:04→09:37)
[2017-03-11] MEDS: SYNTHROID PO SCH (06:50)
[2017-03-11] MEDS: PRILOSEC PO SCH ×2 (06:50→17:12)
[2017-03-11] MEDS: CENTRUM SILVER PO SCH (09:36)
[2017-03-11] MEDS: KLOR-CON PO SCH ×2 (09:36→22:16)
[2017-03-11] MEDS: MAG-OX PO SCH ×2 (09:36→22:16)
[2017-03-11] MEDS: KLONOPIN PO SCH ×2 (09:36→22:17)
[2017-03-11] MEDS: LEXAPRO PO SCH (09:36)
[2017-03-11] MEDS: WELLBUTRIN SR PO SCH ×2 (09:36→22:16)
[2017-03-11] MEDS: HYZAAR 100/12.5 MG TAB PO SCH (09:37)
[2017-03-11] MEDS: SOLU-CORTEF IV SCH ×2 (09:37→22:16)
[2017-03-11] MEDS: PERICOLACE PO SCH ×2 (09:37→22:17)
[2017-03-11] MEDS: BUSPAR PO SCH ×3 (09:37→17:12)
[2017-03-11] MEDS: FOLIC ACID PO SCH (09:37)
--- NOTE | 2017-03-11 11:43 | PROGRESS NOTE ---
DATE: 03/11/2017 SUBJECTIVE: Ms. Smith is hoping to try and go home tomorrow. She is walking a little better. PHYSICAL EXAMINATION: Vital Signs: Temperature 98.3 degrees, pulse 94, respirations 20, blood pressure 152/96. Lungs: Are clear in all lung wall. Cardiovascular Examination: Regular rhythm and rate without murmur or S3. Abdomen: Soft. Skin: Is warm and dry. Is and Os: Urine output over 800 mL. LAB: Blood sugar 95, 87, 76. ASSESSMENT/PLAN: 1. Nausea, vomiting gastroesophageal reflux, paraesophageal hernia, elevated liver functions, alcoholic liver disease. Presented with metabolic encephalopathy and weakness. Liver functions have improved. Cognitive state, emotional status improved dramatically. 2. Acute kidney injury, which is resolved. 3. Combination anemia from poor nutrition, kidney injury, and hepatic injury. Continue iron supplement. 4. General weakness and deconditioning. Encouraged her to continue with physical therapy. 5. She will follow up in about 12 weeks, see Dr. Tipton about her followup colonoscopy. She will follow up with Dr. Nova in several weeks to look at paraesophageal hernia. Continue her treatment for esophagitis and gastritis. cc: Arnold Aldrich MD
[2017-03-11] MEDS: ATIVAN IV PRN ×2 (13:39→16:32)
[2017-03-11] MEDS: SEROQUEL XR PO SCH (22:16)
[2017-03-11] MEDS: PEPCID PO SCH (22:16)
[2017-03-12] MEDS: NS 1,000 ML IV SCH ×3 (01:08→12:18)
[2017-03-12] MEDS: CARAFATE LIQUID PO SCH ×3 (01:08→14:21)
[2017-03-12] MEDS: ATIVAN IV PRN ×3 (04:31→15:26)
[2017-03-12] MEDS: SYNTHROID PO SCH (06:00)
[2017-03-12] MEDS: PRILOSEC PO SCH ×2 (06:00→15:25)
[2017-03-12] MEDS: FOLIC ACID PO SCH (08:27)
[2017-03-12] MEDS: BUSPAR PO SCH ×2 (08:27→14:21)
[2017-03-12] MEDS: HYZAAR 100/12.5 MG TAB PO SCH (08:27)
[2017-03-12] MEDS: LEXAPRO PO SCH (08:27)
[2017-03-12] MEDS: CENTRUM SILVER PO SCH (08:27)
[2017-03-12] MEDS: KLOR-CON PO SCH (08:27)
[2017-03-12] MEDS: MAG-OX PO SCH (08:28)
[2017-03-12] MEDS: PERICOLACE PO SCH (08:28)
[2017-03-12] MEDS: SOLU-CORTEF IV SCH (08:28)
[2017-03-12] MEDS: WELLBUTRIN SR PO SCH (08:28)
[2017-03-12] MEDS: KLONOPIN PO SCH (08:32)
[2017-03-12 14:16] VITALS: BP 146/96
--- NOTE | 2017-03-12 14:45 | PROGRESS NOTE ---
DATE: 03/12/2017 SUBJECTIVE: She is wanting to go home. Her brother called and wanted her to have a psych consult. She is walking and much stronger, she is eating pretty well. EXAM: Vital signs: Afebrile, temperature 98 degrees, pulse 89, respirations 16, blood pressure 146/99. Eyes: Pupils are equal, round. Lungs: Clear in all lung wall. Cardiovascular: Regular rhythm, rate without murmur or S3. Abdomen: Soft. Skin: Warm and dry. Urine output 760 mL. LAB: Reviewed from her chemistries on the hemoglobin was 7.6, hematocrit 23, blood sugar 87, 76 and 86. ASSESSMENT/PLAN: 1. Nausea, vomiting, gastroesophageal reflux, paraesophageal hernia, esophagitis and gastritis appreciated. Continue proton pump inhibitors and Carafate. She is to get an evaluation per Dr. Nova as an outpatient for paraesophageal hernia and she will get follow with Dr. Tipton in about 12 weeks for followup colonoscopy. 2. Acute kidney injury which resolved. 3. Combination anemia macrocytic, blood-loss anemia and secondary alcohol and hepatic injury. 4. General weakness and deconditioning which is improved. Hope to send her home today, get discharge summary done. cc: Arnold Aldrich MD
--- NOTE | 2017-03-13 14:07 | DISCHARGE SUMMARY ---
ADMISSION DATE: 02/24/2017 DISCHARGE DATE: 03/12/2017 HOSPITAL COURSE: A 56-year-old with past medical history of schizophrenia and depression, hypothyroidism, hypertension, gastroesophageal reflux disease and anemia. Apparently she does not have a primary care physician. Does go to [facility] and seeing a counselor there and psychiatrist there. She has been there for awhile. Her dad and her brother were there in the room on admission. She had really gone downhill in the last couple weeks. She could not walk, very weak, stomach was burning. It dennison to urinate. She claimed she had not had a bowel movement in several days. She smokes about a pack a day since age 15. She has been to several alcohol rehab treatment programs by their report in the past. She drinks daily, not sure how much. She has no ride to get alcohol at this time. She was admitted for alcohol withdrawal and she had hyponatremia. She had acute kidney injury and some hypokalemia. Given some fluids. Electrolytes were supplemented. Put on her thyroid supplement. Nephrology was consulted. We were not sure what her baseline creatinine was, but her BUN was 101 and creatinine 5.7. She was given fluid and fluid bolus and steadily the renal function improved. Renal ultrasound done 02/25/2017 revealed no evidence of obstructive uropathy or other abnormality. Her abdominal x-ray done on 02/25/2017 showed nonspecific bowel gas pattern. Dr. Tipton was consulted on 03/05/2017, and she underwent endoscopic evaluation. This was done for nausea and vomiting, epigastric discomfort, history of ethanol. They found a grade D erosive esophagitis, possible Queen's mucosa, Schatzki's ring at the gastroesophageal junction. Large hiatal hernia 35-42 cm and possible paraesophageal hernia. Nonerosive gastritis. Possible portal gastropathy. The patient was continued on proton pump inhibitor and Carafate added. She had a barium swallow done on 03/06/2017 complaining of swallow. Had small periesophageal hernia. Tiny ulcerations versus pulsion diverticular involving the distal esophagus. She showed steady improvement. Dr. Tipton would like to do a colonoscopy in about 12 weeks and she is to get follow up with Dr. Nova about her paraesophageal hernia. Will continue physical therapy and she had getting some stronger. She would like to go home. Her brother would like her to get a psych consult before she leaves. DISCHARGE MEDICATIONS: 1. Wellbutrin 100 mg b.i.d. 2. BuSpar 30 mg t.i.d. 3. Klonopin 1 mg b.i.d. 4. Lexapro 30 mg a day. 5. Pepcid 40 mg at bedtime. 6. Folic acid 1 mg a day. 7. Hyzaar 100/12.5 once a day. 8. Synthroid 75 mcg a day. 9. Mag-Ox 800 mg b.i.d. 10. Multivitamin 1 a day. 11. Prilosec 40 mg b.i.d. 12. Klor-Con 40 mEq p.o. b.i.d. 13. Seroquel XR 200 mg p.o. at bedtime. 14. Carafate 1 g q. 6 hours. PLAN: She is encouraged to get a primary care physician, get some follow up, and continued follow up with the [facility]. cc: Arnold Aldrich MD
--- NOTE | 2017-05-29 18:33 | ED EKG INTERP ---
This chart was entered by Pamela Pathak Scribe, acting as scribe for Willam Bishop MD. EKG Interpretation - EKG Time of EKG reading by physician:: 15:23 EKG Read and Signed by:: Willam Bishop EKG Interpretation (*Must complete 3 of following elements*): Normal Rate: 75 Rhythm: SR W/ SA W/ 1ST DEGREE AV BLOCK [place]: normal QRS: normal GA Interval: normal ST Wave: normal Attestation - Physician/ JANEE Attestation Patient care was provided by Advanced Practice Provider:: No The physician spent face to face time with patient:: No Advanced Practice Provider documentation review:: Supervising physician onsite and consulted in the evaluation and care of this patient. The physician did not have a face to face encounter with the patient. This chart was documented by the indicated scribe, (Pamela Pathak Scribe) and accurately reflects the services I performed and decisions made by vtDario Wenli X, MD, as attested by the provider's signature.
== END 2017-03-12 16:48 | disposition home or self-care (01) ==
LOC: ED 10:40 → EDIPHOLD 14:37 → SUATTDRO 14:37 → 3S 15:42 → 3N 02-25 13:19
PROVIDERS: ATTEND Emergency Medicine